=== PATIENT | female | born 1965 | race Caucasian/White ===

== ENCOUNTER → 2024-01-20 16:22 | Outpatient (REF) | payer OTHER, SELFPAY | LOC: WDC 16:22 | PROVIDERS: ATTENDING PHYSICIAN Internal Medicine | DX: Z12.31 Encounter for screening mammogram for malignant neoplasm of breast (principal) | CPT/HCPCS: 77063; 77067 ==

== ENCOUNTER → 2024-01-28 07:50 | Outpatient (REF) | payer OTHER, SELFPAY | LOC: RAD 07:50 | PROVIDERS: ATTENDING PHYSICIAN Internal Medicine | DX: M81.0 Age-related osteoporosis without current pathological fracture (principal) | CPT/HCPCS: 77080 ==

== ENCOUNTER → 2024-02-10 06:24 | Day surgery (SDC) | payer OTHER, SELFPAY | LOC: GI 06:24 | PROVIDERS: ATTENDING PHYSICIAN Internal Medicine Gastroenterology | DX: Z12.11 Encounter for screening for malignant neoplasm of colon (principal); K64.0 First degree hemorrhoids; D12.2 Benign neoplasm of ascending colon; Z86.010 Personal history of colon polyps; Z80.0 Family history of malignant neoplasm of digestive organs; Z15.09 Genetic susceptibility to other malignant neoplasm | CPT/HCPCS: 45385; 88305 ==

== ENCOUNTER → 2024-06-22 15:44 | Outpatient (REF) | payer OTHER, SELFPAY | LOC: RAD 15:44 | PROVIDERS: ATTENDING PHYSICIAN Internal Medicine | DX: M25.531 Pain in right wrist (principal) | CPT/HCPCS: 73110 ==

== ENCOUNTER → 2024-11-12 10:08 | Outpatient (REF) | payer OTHER, SELFPAY | LOC: RCS 10:08 | PROVIDERS: ATTENDING PHYSICIAN Internal Medicine Cardiovascular Disease; FAMILY PHYSICIAN Nurse Practitioner | DX: R07.89 Other chest pain (principal) | CPT/HCPCS: 93306 ==

== ENCOUNTER → 2024-11-17 08:14 | Outpatient (REF) | payer OTHER, SELFPAY | LOC: RCS 08:14 | PROVIDERS: ATTENDING PHYSICIAN Internal Medicine Cardiovascular Disease | DX: R07.89 Other chest pain (principal) | CPT/HCPCS: 93017; 93350 ==

== ENCOUNTER 2024-12-31 08:06 | Emergency (ER) | payer OTHER, SELFPAY ==
[2024-12-31 08:16] VITALS: BP 146/100
--- NOTE | 2024-12-31 09:15 | ED.GENMED ---
History of Present Illness
General
Chief Complaint: Numbness
Source: patient
Exam Limitations: none
Time Seen by Provider: 12/31/24 08:52
History of Present Illness
History of Present Illness:
See MDM
Past History
Past History
ED Past Medical History: Other (Kidney stones and migraines)
ED Past Surgical History: None
Social History
Tobacco: Non-smoker
Personal:
Phy Exam
Physical Exam
Physical Exam:
See MDM
Course
Orders/Labs/Results
Orders:
Orders
12/31/24 09:14
Dexamethasone Sod Phosphate [Decadron] 10 mg IV NOW STA
Gabapentin [Neurontin] 100 mg PO NOW STA
12/31/24 09:30
Complete Blood Count/With Diff Urgent
Comprehensive Metabolic Panel Urgent
Abnormal Lab Results
12/31/24
09:30
Lymphocytes % 20.4 L %
(20.5-51.1)
ALT 45 H U/L
(0-35)
12/31/24 09:30
12/31/24 09:30
Vital Signs
Initial and Last Documented VS:
Initial Vital Signs
Temp Pulse Resp BP Pulse Ox
98.2 F 72 16 146/100 98
12/31/24 08:16 12/31/24 08:16 12/31/24 08:16 12/31/24 08:16 12/31/24 08:16
Last Documented Vital Signs
Temp Pulse Resp BP Pulse Ox
98.2 F 62 16 113/96 98
12/31/24 08:16 12/31/24 10:00 12/31/24 08:16 12/31/24 10:00 12/31/24 10:20
MDM/Problems Addressed
Differential Diagnosis Includes:
HPI and MDM Narrative:
59-year-old female presenting for evaluation of generalized tingling in her feet and her hands. This is associated with mild weakness in both hands as well. She states her legs are weak as well. She does have orthopedic follow-up in 3 weeks. She
has diagnosed cervical and lumbar herniated disks. She has had epidurals in the past with no relief. She denies any trauma.
On exam, she is well-appearing nontoxic. She has no red flags such as numbness or bowel or bladder control issues.
On exam, sensation is grossly intact to legs and feet. Muscle strength is intact as well. I did evaluate her prior MRIs. We discussed that this could be peripheral or potentially central canal stenosis. Will start gabapentin for the nerve pain
and will start a steroid taper. Will obtain basic blood work to rule out any metabolic abnormalities.
Physical exam
General: Well appearing and non-toxic
HEENT: protecting airway
Neck: appears supple
CV: No evidence of cyanosis
Resp: No accessory muscle use
Abd: Non-distended
Extremities: No deformities
Neuro: alert. Full range of motion and muscle strength in all extremities. Sensation grossly intact
Psych: Normal affect
Skin: Intact
Problems Addressed including Acute and Chronic Conditions affecting care:
1. Nerve pain
Acuity: acute
Prognosis: stable
Details: Will start gabapentin steroids. Discussed the importance of keeping her orthopedic appointment and discussed importance of outpatient MRI
Updates
Blood work with clinically relevant abnormality. Patient feels comfortable going home
Differential Diagnosis (but not limited to): Central canal stenosis, herniated disks, hypocalcemia
Testing considered: Lumbar and cervical x-ray but no midline tenderness
Drug therapy (if applicable): OTC meds, please see d/c instruction regarding Rx drugs
Amount and/or Complexity of Data Reviewed
Clinical info obtained from: Patient
External data reviewed: Prior MRIs evaluated showing evidence of central canal stenosis and disc herniations
Labs I independently reviewed (but not limited to): Electrolytes within normal limits
Radiology: N/A
Pulse Ox: not hypoxic
EKG independently reviewed: N/A
Chemist Internship: N/A
Critical Care: N/A
Risk of Complication:
Social Determinants of health: Good social support
Discussed with other providers: N/A
Escalation of Care includes Admit/Obs: After being observed in the Emergency Department, pt stable for discharge.
Occasional wrong word or 'sound a like' substitutions may have occurred due to the inherent limitations of voice recognition software. Read the chart carefully and recognize, using context, where substitutions have occurred.
*Critical Care Note
Total Time (30-74mins, 75-104mins- exclusive of procedures): Not Applicable
ED Attending Note
-
Portions of this chart may have been created with voice recognition software.� Occasional wrong word or��sound alike� substitutions may have occurred due to the inherent limitations of voice recognition software.
Discharge Plan
Departure
Patient Disposition: Home (Routine Discharge)
Date of Disposition: 12/31/24
Time of Disposition: 10:48
Patient with high blood pressure during this ER visit?: No
Discharge Problem:
Paresthesia
Instructions: Paresthesia (DC)
Prescriptions:
New
prednisone 10 mg tablet
See Rx Instructions .ROUTE .COMPLEX Qty: 45 0RF
Rx Instructions:
5 tabs day 1-3, 4 tabs day 4-6, 3 tabs day 7-9, 2 tabs day 10-12, 1 tab day 13-15
gabapentin 100 mg capsule
100 mg PO BID Qty: 30 0RF
No Action
fkbvbffpsv-mosnltlyfsrrq-fylk 1 TAB tablet
1 tab PO Q4HPRN PRN (Reason: migraines)
calcium carbonate 600 MG tablet
600 mg PO DAILY
Referrals:
Iraida Butler CRNP [Family Provider] -
Activity Restrictions/Additional Instructions:
Please return for any worsening symptoms.
You may return at any time if you have further concerns.
Please follow up with your doctor at the first available appointment, preferably this week. Please keep your orthopedic appointment.
Thank you for choosing [facility].
Interventions
Interventions:
*Risk Screen - Suicide Last Done: 12/31/24 08:16
*General Assessment Last Done: 12/31/24 09:39
*Neglect/Abuse Screening Last Done: 12/31/24 08:16
*ED- Fall Risk Assessment Last Done: 12/31/24 09:39
*ED COVID-19 Vaccine History Last Done: 12/31/24 09:39
ED- Neurological Assessment Last Done: 12/31/24 10:20
Discharge Date and Time
Print Language: SCOTTISH
[2024-12-31] MEDS: DECADRON 10 MG IV (09:31)
[2024-12-31] MEDS: NEURONTIN 100 MG PO (09:37)
[2024-12-31 09:39] VITALS: BP 131/118
[2024-12-31 09:40] VITALS: BMI 30.5
[2024-12-31 09:41] LABS: % Basophils 0.6 % (0-2); % Eosinophils 2.8 % (0-6); % Immature Granulocytes 0.1 % (0-0.5); % Lymphocytes 20.4 % (20.5-51.1); % Monocytes 5.5 % (1.7-9.3); % Neutrophils 70.6 % (42.2-75.2); Absolute Eosinophils 0.2 10^3/uL (0-0.7); Absolute Lymphocytes 1.5 10^3/uL (1.2-3.4); Absolute Monocytes 0.4 10^3/uL (0.1-0.6); Absolute Neutrophils 5.1 10^3/uL (1.4-6.5); Hematocrit 43.5 % (37.0-47.0); Hemoglobin 14.6 g/dL (12.0-16.0); Mean Corp Hgb Conc. 33.6 g/dL (33.0-37.0); Mean Corpuscular Hgb 29.8 pg (27.0-31.0); Mean Corpuscular Volume 88.8 fL (81.0-99.0); Mean Platelet Volume 10.2 fL (7.4-10.4); Nucleated Red Blood Cells % 0 %; Platelet Count 245 10^3/uL (130-400); Red Cell Dist. Width 13.3 % (11.5-14.5); White Blood Cell Count 7.3 10^3/uL (4.8-10.8)
[2024-12-31 10:00] VITALS: BP 113/96
[2024-12-31 10:15] LABS: ALT (SGPT) 45 U/L (0-35); AST (SGOT) 36 U/L (14-36); Albumin 4.4 g/dl (3.5-5.0); Alkaline Phosphatase 99 U/L (38-126); Blood Urea Nitrogen 12 mg/dl (7-17); Calcium 9.6 mg/dl (8.4-10.2); Carbon Dioxide 28 mmol/L (22-30); Chloride 105 mmol/L (98-107); Estimated Creatinine Clearance 76 ml/min; Glucose 91 mg/dl (70-99); Potassium 4.3 mmol/L (3.5-5.1); Sodium 141 mmol/L (135-145); Total Bilirubin 0.5 mg/dl (0.2-1.3); Total Protein 7.3 g/dl (6.3-8.2); eGFR > 60.00
== END 2024-12-31 11:48 | disposition home or self-care (01) ==
LOC: EMR 08:06
PROVIDERS: EMERGENCY PHYSICIAN Student in an Organized Health Care Education/Training Program; FAMILY PHYSICIAN Nurse Practitioner
DX: R20.2 Paresthesia of skin (principal); Z87.442 Personal history of urinary calculi
CPT/HCPCS: 99283; 96374; 80053; 85025

== ENCOUNTER 2025-01-14 20:59 | Inpatient (IN) | payer OTHER, SELFPAY ==
[2025-01-14] VITALS (7 sets, daily range): BP systolic 102–142; BP diastolic 73–99; BMI 32.5; BMI 28.4
--- NOTE | 2025-01-14 14:53 | EDRN ---
Numbness is circumferential on arm and leg. Noted decreased ability to use lt hand but can move larger muscles of arm and leg. Numbness affects lt abd and radiates acroos abd to the rt and the back. No resp difficulties
--- NOTE | 2025-01-14 15:51 | EDRN ---
Pt complains of numbness on entire L side of her body. Pt has tingling in her R foot, R hand and anterior abdomen wrapping around to her back. Pt denies ambulatory difficulty, n/v, dizziness, visual/speech disturbance, cp, sob, fever/chills/cough,
urinary symptoms, difficulty swallowing. Pt says she always has a headache but does not have one now.
--- NOTE | 2025-01-14 16:09 | ED.GENMED ---
History of Present Illness
General
Chief Complaint: Numbness
Source: patient
Exam Limitations: none
Time Seen by Provider: 01/14/25 15:08
Nursing documentation reviewed up to this point in time: agreed with
History of Present Illness
History of Present Illness:
59 y/o F with hld, htn, migraines, degenerative disc disease lumbar spine
here with paresthesias and weakness
started 2 weeks ago with symptoms in both forearms to hands when she woke up like they were asleep
she says this lasted throughotut the day and got a little better
the following day she woke up with numbness LUE from collar bone down to foot on L side, still R hand and wraping around her trunk and back - it felt numb like pins and needles
she was still able to walk but the following day woke up and nearly fell over because she was weak and felt like she couldn't feel the ground
she was seen here later that day
felt to have symptoms of neuropathy vs. DDD and was given gabapentin and prednisone
pt says she was fairly weak for a few days, having to sit on her bottom to go down the steps so she wouldn't fall
but she does feel like her strength haxs improved
no fever/chills, headache, vision chagnes, nauesa, vomiting, dizziness, cp, sob, passing out
pt has not hadd any pain isgnificvasntly
she happened to have a visit with dr. vince walsh for her spine yesterday that she had made months ago
he did some neuro testing an dfelt like her LUE was a little weak and ordered outpatient MR of cervical and lumbar spine
but she in the meantime had a telehealth wiht her neurologist who has treated her migraines for years
she previously had MRI brain imaging about 1 year ago that ws brian
and he was really concerned she has a central cord problem or disc or maybe MS
and sent her for admission and MRI and work up
Past History
Past History
ED Past Medical History: Other (Kidney stones and migraines)
ED Past Surgical History: None
Social History
Tobacco: Non-smoker
Personal:
Review of Systems
Review of Systems
Allergies reviewed?: Yes
All Other Systems: Not applicable
Phy Exam
Physical Exam
Physical Exam:
GENERAL: Alert , in no apparent distress
HEAD: NCAT
EYE: pupils equal and reactive, no nystagmus, no photophobia
NECK: Supple,full rom, nontender
ENT: o/p clr, mmm.
CARDIAC: Regular rate and rhythm . no edema
LUNGS: Clear breath sounds bilaterally, no acute respiratory distress, no wheezes/rales/rhonchi
ABDOMEN: Soft, without focal tenderness, no r/g, no cvat
NEUROLOGICAL: Alert and orientedx 4, cn intact, no facial asymmetry 4/5 strength LUE, LLE, sensation diminished trunk, LUE, LLE subjectively; , romberg neg, ambulates without assistance but has a slightly wider gait; + hyperreflexic 3+ b/l patellar,
achilles; neg pronator drift
SKIN: Warm and dry, skin intact.
MUSCULOSKELETAL: No edema, well perfused.
PSYCH: Normal and appropriate interaction.
Course
Orders/Labs/Results
Orders:
Orders
01/14/25 15:58
Electrocardiogram (*1) Stat
Reason for Study: Other
Other Reason for Exam: neuro symptoms
EKG- Treatment ONCE
01/14/25 16:00
CT Head W/o Iv Contrast Urgent
Comment:
Reason For Exam: numbness/weakness L side
01/14/25 16:27
Complete Blood Count/With Diff Urgent
Comprehensive Metabolic Panel Urgent
Folate Urgent
Lyme Progressive Urgent
TSH Reflex To Free T4 Urgent
Vitamin B12 Urgent
01/14/25 19:47
MR Cervical Spine Without & W Stat
Comment: holden sydnrome
Reason For Exam: paresthesia L side, trunk, weakness
Recent pill cam endoscopy?: No
MR Thoracic Spine W/o & With Stat
Comment:
Reason For Exam: holden syndrome, paresthesia trunk/LUE/LLE
Recent pill cam endoscopy?: Yes
01/14/25 20:28
Admit/Transfer Patient As Directed
Co-Sign Provider:
Level of Care: Inpatient admission
Assign to:: Telemetry
Physician / Group: Lauro Concepcion
Diagnosis: Cervico-thoracic myelopathy, hyperreflexia, weakness
Reason for Telemetry: Arrhythmia
Date to Stop Telemetry: 01/17/25
Time to Stop Telemetry: 11:00
Reason for Hospitalization: Cervico-thoracic myelopathy, hyperreflexia, weakness
Expected length of stay greater than two midnights?: Yes
ELOS- Estimated Length of Stay in days: 3
I certify the patient meets the requirements for IP care: Yes
PRN Pain Medication Management As Directed
May give lesser potent ordered pain med per pt: Yes
preference::
Protocol:: Medication orders for pain may be administered in a
manner that supports deferring to patient preference
when the pt is:
- Requesting an ordered lesser potent pain medication.
Least to most potent pain medications are defined
as: acetaminophen < NSAID < tramadol < opioids
(morphine, oxycodone, hydromorphone).
- Requesting a lesser dose of the same medication IF
ORDERED.
- Requesting a less intrusive route of administration
if both routes are prescribed by the provider (PO <
IV).
01/14/25 20:30
Code Status As Directed
Resuscitation Status: Full Code
01/17/25 11:00
DC Protocol for Telemetry ONCE
Abnormal Lab Results
01/14/25
16:27
WBC 17.2 H 10^3/uL
(4.8-10.8)
MCHC 32.5 L g/dL
(33.0-37.0)
RDW 14.6 H %
(11.5-14.5)
Abs Immat Gran (auto) 0.1 H 10^3/uL
(0-0.05)
Absolute Neuts (auto) 12.3 H 10^3/uL
(1.4-6.5)
Absolute Lymphs (auto) 3.6 H 10^3/uL
(1.2-3.4)
Absolute Monos (auto) 0.9 H 10^3/uL
(0.1-0.6)
Carbon Dioxide 34 H mmol/L
(22-30)
ALT 45 H U/L
(0-35)
01/14/25 16:27
01/14/25 16:27
Vital Signs
Initial and Last Documented VS:
Initial Vital Signs
Temp Pulse Resp BP Pulse Ox
36.8 C 72 16 142/95 96
01/14/25 11:59 01/14/25 11:59 01/14/25 11:59 01/14/25 11:59 01/14/25 11:59
Last Documented Vital Signs
Temp Pulse Resp BP Pulse Ox
36.8 C 82 20 127/94 98
01/14/25 11:59 01/14/25 20:00 01/14/25 20:00 01/14/25 19:58 01/14/25 14:45
MDM/Problems Addressed
Differential Diagnosis Includes:
cva, ms, cervical stenosis, myelopathy
MDM/Problems Addressed:
59/ y/o F
sent by her neurologist dr. mayfield
h/o migraines, lumbar DDD, htn, hld
here 2 weeks ago for numbness L UE, LLE as well as trunk and back; felt weak on that side and nearly fell over as her L leg gave out;
at that time she had no imaging, was told she may have ddd and neuropathy, was given steroids and gabapentin
in the 2 weeks since, she has continued to have the tingling/paresthesai feeling but does feel like her weakness is better; she intiially was crawling down the steps becuase she felt like she couldn't feel the floor; but yesterday she happened to
have an appt with vince walsh (ortho/spine) for lower back and he checked her strength and thought she was weaker on the L side, ordered outpatient MR cervical and lumbar spine; but then she did tele health with her neurologist today and was urgently
sent in to the er
she is minimally weaker on the L than R;
hyperreflexic b/l
has intact sensation but feels it is diminished in her trunk, LUE, LLE
d/w dr. galarza; recommended initaiting work up with head ct in the ER and admit, consult neurology
suspect pt will need MRI of cervical spine, and maybe brain
she also has wbc 17 but was recently on steroids?
no fever
no significant pain
no h/o IVDA
SEEN BY NEURO
RECOMMENDED STAT MRI C AND T SPINE WITH STAN
S/O TO HOSPITALIST
*Critical Care Note
Total Time (30-74mins, 75-104mins- exclusive of procedures): Not Applicable
ED Attending Note
-
Portions of this chart may have been created with voice recognition software.� Occasional wrong word or��sound alike� substitutions may have occurred due to the inherent limitations of voice recognition software.
Discharge Plan
Departure
Patient Disposition: Admit
Date of Disposition: 01/14/25
Time of Disposition: 19:03
Admit to: Med/Surg
Presentation/result/management discussed w/ accepting MD/DO: Hospitalist
Condition: Fair
Covid-19: Not Applicable
Discharge Problem:
Paresthesia, Weakness, Hyperreflexia
Interventions
Interventions:
*Risk Screen - Suicide Last Done: 01/14/25 11:59
*General Assessment Last Done: 01/14/25 15:04
*Neglect/Abuse Screening Last Done: 01/14/25 11:59
*ED- Fall Risk Assessment Last Done: 01/14/25 14:51
*ED COVID-19 Vaccine History Last Done: 01/14/25 14:51
ED- Neurological Assessment Last Done: 01/14/25 15:50
[2025-01-14 16:43] LABS: % Basophils 0.3 % (0-2); % Eosinophils 0.8 % (0-6); % Immature Granulocytes 0.5 % (0-0.5); % Lymphocytes 21.1 % (20.5-51.1); % Monocytes 5.3 % (1.7-9.3); Absolute Basophils 0.1 10^3/uL (0-0.2); Absolute Eosinophils 0.1 10^3/uL (0-0.7); Absolute Immature Granulocytes 0.1 10^3/uL (0-0.05); Absolute Lymphocytes 3.6 10^3/uL (1.2-3.4); Absolute Monocytes 0.9 10^3/uL (0.1-0.6); Absolute Neutrophils 12.3 10^3/uL (1.4-6.5); Hematocrit 46.5 % (37.0-47.0); Hemoglobin 15.1 g/dL (12.0-16.0); Mean Corp Hgb Conc. 32.5 g/dL (33.0-37.0); Mean Corpuscular Hgb 29.6 pg (27.0-31.0); Mean Corpuscular Volume 91.2 fL (81.0-99.0); Mean Platelet Volume 9.5 fL (7.4-10.4); Nucleated Red Blood Cells % 0 %; Platelet Count 255 10^3/uL (130-400); Red Cell Dist. Width 14.6 % (11.5-14.5); White Blood Cell Count 17.2 10^3/uL (4.8-10.8)
[2025-01-14 17:00] LABS: ALT (SGPT) 45 U/L (0-35); AST (SGOT) 25 U/L (14-36); Albumin 4.3 g/dl (3.5-5.0); Alkaline Phosphatase 92 U/L (38-126); Blood Urea Nitrogen 16 mg/dl (7-17); Calcium 9.4 mg/dl (8.4-10.2); Carbon Dioxide 34 mmol/L (22-30); Chloride 104 mmol/L (98-107); Estimated Creatinine Clearance 80 ml/min; Glucose 85 mg/dl (70-99); Potassium 4.5 mmol/L (3.5-5.1); Sodium 144 mmol/L (135-145); Total Bilirubin 0.6 mg/dl (0.2-1.3); Total Protein 6.7 g/dl (6.3-8.2); eGFR > 60.00
[2025-01-14 17:30] LABS: TSH Reflex To Free T4 1.69 uIU/ml (0.47-4.68)
[2025-01-14 17:49] LABS: Vitamin B12 885 pg/ml (239-931)
--- NOTE | 2025-01-14 18:06 | CON.NEURO ---
Consultation
Order
Date of Consultation: 01/14/25
Requesting Provider: Iraida Gurrola PA-C
Reason for Consult: Left-sided weakness and sensory deficits
Neurology Consultation Note.
HPI: This is a 59-year-old woman who referred to [facility] on 01/14/2025 for an evaluation of motor and sensory deficits.
According to the patient around two weeks ago while driving, experienced numbness in both arms from elbows to fingers. The following day, she developed the entire left side, including torso paresthesia described as pins and needles sensation. Five
days later, the patient experienced sudden left leg weakness, causing buckling of the knees and a fall upon getting out of bed. She was seen in the ER when prescribed gabapentin and prednisone.
The patient reports improvement of her left leg weakness and persistence of left arm and leg paresthesias. 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 Ms.
Ulises reports new-onset severe constipation with absence of urge to defecate.
The patient now relies on a cane borrowed from her due to left leg weakness and reports difficulty with stairs.
ER VS: 142/95, 72, afebrile
EKG: Sinus bradycardia at 59, QTc Int : 425 ms
PDMP: Duuamv-Hbweocui-Splq 50-325-40 90 tablets filled in on 05/27/2024, 08/17/2024, 12/10/2024
Labs: WBCs�17.2, hematocrit�46.5, normal sodium, creatinine, TSH, B12.
Brain MRI wo geremias(03/23/2013) There are two small white matter lesions in the superior aspect of the left frontal lobe measuring 4 and 3-mm in size. These lesions appear decreased in size and signal intensity compared with the prior MRI examination
performed in 2004.
PMH: Dave syndrome, cervical DJD, HTN, DLP, BMI 32, vitamin D, B12 deficiency, migraine headache, chronic back pain
PSH:colonoscopies, hysterectomy with BSO, bilateral knee arthroscopies
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
FH: Mother in her 60s from stroke, father is alive with CKD and high blood pressure
All:NKDA
ROS: Constitutional: Negative. Negative for chills, fever and unexpected weight change.
HENT: Negative for ear pain, hearing loss, tinnitus and trouble swallowing.
Eyes: Negative. Negative for photophobia, pain and visual disturbance.
Respiratory: Negative for cough, choking and shortness of breath.
Cardiovascular: Negative for chest pain, palpitations and leg swelling.
Gastrointestinal: Positive for constipation
Endocrine: Negative. Negative for cold intolerance.
Genitourinary: Negative for dysuria, flank pain and urgency.
Musculoskeletal: Negative for back pain, gait problem, neck pain and neck stiffness.
Skin: Negative for rash.
Allergic/Immunologic: Negative. Negative for immunocompromised state.
Neurological: Positive for left arm and leg paresthesias and weakness
Psychiatric/Behavioral: Negative for behavioral problems, confusion and hallucinations.
General: Well developed. In no acute distress.
Cardio: Regular rate and rhythm without murmur. Extremities are without cyanosis or edema.
Neuro:
Mental Status: Alert, oriented to person, place, and date. Normal attention and recall. Good fund of knowledge. Follows complex requests across the midline. Comprehension, naming, and repetition intact. Immediate and delayed recall 3/3.
Cranial Nerves: Pupils are equally round and reactive to light. EOMs full. Visual garcia full to confrontation. No ptosis. No nystagmus. V1-V3 intact to light touch and pinprick bilaterally, symmetric. Face symmetric. Normal hearing AU. The
palate elevated well. SCMs and traps 5/5. Tongue midline. No dysarthria.
Motor: Normal bulk and tone. No pronator or arm drift. Strength 5/5 throughout. No clonus.
Reflexes: 2+ throughout the upper extremities and 3+ knees. 2/2 in AJs. Negative Judy's bilaterally plantar responses flexor bilaterally.
Sensory: In the bilateral toes and ankles. No clear sensory level. preserved proprioception
Coordination: No dysmetria or tremor.
Gait: deferred
Assessment and Plan:
I. Cervico-thoracic myelopathy. Differential diagnosis includes intrinsic versus extrinsic. Compressive versus inflammatory versus demyelinating versus neoplastic.
II. Dave syndrome
III. History of migraine headaches
-Continue Telemetry monitoring
-Fall precautions
-Please check PVR
-Stat CT�T spine MRI with and without gadolinium
-Myelopathy blood work
-PT.
-DVT prophylaxis.
I personally reviewed all radiology and labs along with past medical records pertinent to current medical problems. Total time spent in patient care is 64 minutes.
Thank you for allowing us to participate in the care of this patient. We will continue to follow. Please do not hesitate to contact us with any questions or concerns.
Subjective/Objective
Subjective Data
Date of Service: January 14, 2025
Objective Data
Vital Signs
Temp Pulse Resp BP Pulse Ox
36.8 C 71 15 102/82 98
01/14/25 11:59 01/14/25 17:00 01/14/25 17:00 01/14/25 17:00 01/14/25 14:45
Lab Results
01/14/25 16:27
01/14/25 16:27
Sodium 144 mmol/L (135-145) 01/14/25 16:27
Potassium 4.5 mmol/L (3.5-5.1) 01/14/25 16:27
BUN 16 mg/dl (7-17) 01/14/25 16:27
Glucose 85 mg/dl (70-99) 01/14/25 16:27
Calcium 9.4 mg/dl (8.4-10.2) 01/14/25 16:27
Vitamin B12 885 pg/ml (239-931) 01/14/25 16:27
Patient Allergies
No Known Allergies Allergy (Verified 01/14/25 11:58)
Medications
-
Home Medications
�Medication �Instructions �Recorded
dadiryxdyo-tluoiblpzovsg-jifsavgw 1 tab PO [id number] PRN migraines 03/03/17
50 mg-325 mg-40 mg tablet
calcium carbonate 1,200 mg PO DAILY 03/03/17
atorvastatin 40 mg tablet 40 mg PO DAILY 01/14/25
cetirizine 10 mg tablet 10 mg PO DAILY 01/14/25
cholecalciferol (vitamin D3) 125 125 mcg PO DAILY 01/14/25
mcg (5,000 unit) tablet (Vitamin
D3)
cyanocobalamin (vitamin B-12) 1,000 mcg PO DAILY 01/14/25
1,000 mcg tablet
lisinopril 5 mg tablet 5 mg PO DAILY 01/14/25
omega 0-vge-vsj-fish oil 1,200 mg 1 cap PO DAILY 01/14/25
(144 mg-216 mg) capsule (Fish Oil)
Vital Signs and Labs
-
Vital Signs and Labs:
Vital Signs
Temp Pulse Resp BP Pulse Ox
36.8 C 71 15 102/82 98
01/14/25 11:59 01/14/25 17:00 01/14/25 17:00 01/14/25 17:00 01/14/25 14:45
Lab Results
01/14/25 16:27
01/14/25 16:27
Sodium 144 mmol/L (135-145) 01/14/25 16:27
Potassium 4.5 mmol/L (3.5-5.1) 01/14/25 16:27
BUN 16 mg/dl (7-17) 01/14/25 16:27
Glucose 85 mg/dl (70-99) 01/14/25 16:27
Calcium 9.4 mg/dl (8.4-10.2) 01/14/25 16:27
Vitamin B12 885 pg/ml (175-743) 01/14/25 16:27
Home Medications
-
Home Medications
dlpgnucyzx-jymhwcdqbbfpm-wdlkkpht 50 mg-325 mg-40 mg tablet 1 tab PO [id number] PRN migraines 03/03/17
calcium carbonate 1,200 mg PO DAILY 03/03/17
atorvastatin 40 mg tablet 40 mg PO DAILY 01/14/25
cetirizine 10 mg tablet 10 mg PO DAILY 01/14/25
cholecalciferol (vitamin D3) 125 mcg (5,000 unit) tablet (Vitamin D3) 125 mcg PO DAILY 01/14/25
cyanocobalamin (vitamin B-12) 1,000 mcg tablet 1,000 mcg PO DAILY 01/14/25
lisinopril 5 mg tablet 5 mg PO DAILY 01/14/25
omega 7-hdb-oec-fish oil 1,200 mg (144 mg-216 mg) capsule (Fish Oil) 1 cap PO DAILY 01/14/25
[2025-01-14 19:04] LABS: Folate 11.9 ng/ml (2.76-20)
--- NOTE | 2025-01-14 19:34 | HPS.HSE ---
Family Physician
-
Family Physician: ABY Archer
Chief Complaint
-
paresthesias and weakness
History of Present Illness
Patient is a 9-year-old female with past medical history significant for essential hypertension, hyperlipidemia, Dave syndrome and osteoporosis who presented to [facility] ED for evaluation of paresthesias and weakness. Symptoms started
approximately 2 weeks ago in both forearms to hands when she woke up like they were asleep. The next day she woke with numbness in LUE from collar bone down to foot on left side, right hand and wrapping around trunk to back. All described as pins
and needles. On the 3rd day she woke up and had increased weakness, felt like she could not feel ground under her and was afraid of falling. She elected to get evaluated in ED. She was discharged home with gabapentin and prednisone for neuropathy
vs. DDD. Patient reports she continues to feel weak, but does believe there is improvement from initial evaluation. In the last two days patient has seen Dr. Matt iKng for her spine, he felt her LUE was a little weak and ordered out patient
testing. Then today she had a telehealth visit with neurologist who is concerned for central cord problem, disc problem or possible MS and recommended to return to ED for further workup. Patient does report some improvement in strength with the
steroids, the numbness or 'pins and needle' feeling remains the same. She reports new onset constipation and not having a decent bowel movement in 2 weeks. Patient denies vision changes, dizziness, confusion, headaches, fever, chills, cough,
shortness of breath, chest pain, nausea, vomiting, diarrhea or urinary symptoms.
Medical History
Past Medical History
Past Medical History: Reports Other
Additional Past Medical History:
essential hypertension
hyperlipidemia
Dave syndrome
osteoporosis
Hx Sebaceous carcinoma of right shoulder
Hx kidney stones
Past Surgical History: Reports Other
Additional Past Surgical History:
B/L Knee Arthroscopy
TLH/BSO 2019- Done for Dave Syndrome
Total hysterectomy
Social History
Tobacco: Non-smoker
Alcohol: None
Drug: None
Personal:
Living: With Family
Employment: Employed
Family History
Family History: Not pertinent
Allergies / Home Medications
Allergies reflects when Allergies were last updated in [employer].
Home Medications with original date entered in [employer]
Allergy/Medication List:
Allergies
Allergy/AdvReac Type Severity Reaction Status Date / Time
No Known Allergies Allergy Verified 01/14/25 11:58
Home Medications
illkqxrveq-lroyvmdszchxq-cuiaebnr 50 mg-325 mg-40 mg tablet 1 tab PO [id number] PRN migraines 03/03/17
calcium carbonate 1,200 mg PO DAILY 03/03/17
atorvastatin 40 mg tablet 40 mg PO DAILY 01/14/25
cetirizine 10 mg tablet 10 mg PO DAILY 01/14/25
cholecalciferol (vitamin D3) 125 mcg (5,000 unit) tablet (Vitamin D3) 125 mcg PO DAILY 01/14/25
cyanocobalamin (vitamin B-12) 1,000 mcg tablet 1,000 mcg PO DAILY 01/14/25
lisinopril 5 mg tablet 5 mg PO DAILY 01/14/25
omega 4-ayd-rja-fish oil 1,200 mg (144 mg-216 mg) capsule (Fish Oil) 1 cap PO DAILY 01/14/25
Review of Systems
-
Abdomen/GI: Reports Constipated
Musculoskeletal: Reports Other (numbness on left side, collar bone to toes with no improvement in 2 weeks )
Neurological: Reports Weakness (generalized weakness, L>R) and Numbness (Left side of body from collar bone to toes )
Physical Exam
Vital Signs
Vital Signs
Temp Pulse Resp BP Pulse Ox
98.3 F 67 17 141/99 98
01/14/25 11:59 01/14/25 18:10 01/14/25 18:10 01/14/25 18:10 01/14/25 14:45
Physical Exam
General: Well Developed, Well Nourished, No Apparent Distress, Comfortable and Conversant
HEENT: NormoCephalic, Moist mucous membranes, Atraumatic, [place] Conjunctivae, Nose Appears Normal and Ears Appear Normal
Respiratory: Clear and Non Labored Respirations
Cardiac: S1/S2 and Regular Rhythm; No Murmur, Rub or Gallop
GI: Soft, Non Tender, Non Distended and Normal Bowel Sounds (hypoactive ); No Organomegaly
Rectal: Deferred by Provider
Genito-urinary: Deferred by me
Musculoskeletal: No Clubbing, No Cyanosis and No Edema
Skin: No Rash
Neuro: Awake, Alert, AO x 3 and Nonfocal/grossly intact; No DTR's Intact & Symmetrical (4/5 strength LUE, LLE, sensation diminished trunk, LUE, LLE subjectively; +4 hyperreflexic to left patellar )
Psych: Calm and Intact Judgment/Insight
Laboratory Results
-
01/14/25 16:27
01/14/25 16:27
Laboratory Results
Total Bilirubin 0.6 mg/dl (0.2-1.3) 01/14/25 16:27
AST 25 U/L (14-36) 01/14/25 16:27
ALT 45 U/L (0-35) H 01/14/25 16:27
Alkaline Phosphatase 92 U/L (38-126) 01/14/25 16:27
Data Reviewed
-
CT Scan: Report Reviewed by me (Head: No acute intracranial abnormality noted.)
Medical Tests (Nuc Med, Echo, EKG etc): Report Reviewed by me (EKG: SINUS BRADYCARDIA LOW VOLTAGE QRS LEFT ANTERIOR FASCICULAR BLOCK NONSPECIFIC T WAVE ABNORMALITY)
Lab Data: Labs Reviewed by me (WBC 17.2)
Impression/Plan
-
IMPRESSION/PLAN:
#cervico-thoracic myelopathy
Left sided weakness and numbness from collar bone to toes, hyperreflexic
EKG: SINUS BRADYCARDIA
LOW VOLTAGE QRS
LEFT ANTERIOR FASCICULAR BLOCK
NONSPECIFIC T WAVE ABNORMALITY
Head CT: No acute intracranial abnormality noted.
- Admit to telemetry
- Consult Neurology
- STAT MRI CT-T spine
- bladder scan for PVR
#essential hypertension
- continue lisinopril
#hyperlipidemia
- hold atorvastatin
#Dave syndrome
#osteoporosis
#Hx Sebaceous carcinoma of right shoulder
#Hx kidney stones
Code status: full code
DVT prophylaxis: Lovenox sq
--- NOTE | 2025-01-14 19:59 | W.PN.UPDATE ---
Addendum entered and electronically signed by Lauro Concepcion MD 01/15/25 09:11:
Laboratory Tests
01/14/25 01/14/25 01/15/25
16:27 22:47 06:29
Creatine Kinase 38
C-Reactive Protein 9.30 Pending
Total Protein 6.7
Albumin 4.3
Vitamin B12 885
Folate 11.9
TSH (Reflex) 1.69
CHENCHO IgG Screen Pending
Addendum entered and electronically signed by Lauro Concepcion MD 01/15/25 09:07:
01/14/25 MRI Cx spin w/wo
Focal somewhat pointed defined signal intensity abnormality within the cervical spinal cord at the C5-6 level as described, with no evidence for abnormal enhancement. Given the clinical symptoms, this is suspicious for a focal area of transverse
myelitis or demyelination, although without evidence for active enhancement/inflammation.
Changes of degenerative disc disease. Borderline mild overall central canal stenosis at C5-6.
Pending report of MRITxspine w/wo
- await Neuro follow up consult
Original Note:
Update Note
Progress Note Update
This note serves as an addendum to the H&P by head start teacher NILTON
Dianne Covingtonck
HPI
59F HX DDD Oc Lx spine , HTN, HLD sen at ER for paresthesias and weakness of Ext and trunk and unsteady gait
- 2 weeks ago now onset of both forearms to hands when she woke up as if they were asleep which lasted throughotut the day and got a little better
- Day 2 she woke up with numbness LUE from collar bone down to foot on L side, still R hand and wraping around her trunk and back - it felt numb like pins and needles
- Day 3 from onset , felt weak, nearly fell coz she couldn't feel the ground
- Then she was seen at ER suugest neuropathy vs. DDD and was given gabapentin and prednisone
- After initiation of PO steroids , fairly weak for a few days, sit on her bottom to go down the steps
- Subjectively strength was improved
ROS
- no fever/chills, headache, vision chagnes, nauesa, vomiting, dizziness, cp, sob, passing out
PHX; se above
VS
01/14/25
11:59
Temp 98.3 F
Pulse 72
Resp Rate 16
Blood pressure 142/95
SaO2 96
Oxygen Mode of Delivery Room air
PE
Gen: Not toxic
HEENT: symmetric face . Nl speech. Nl language
Neck:supple
Lungs: CTA
Cor:RRR
Abdomen: soft , benighn
CONFERENCE RESERVATIONIST:
AOx3
CN intact
Motor: Lt UEx and Lt MT - 4/5 strength. NEG pronator drift
Sensory: diminished trunk, LUE, LLE
DTR: asymmetric reflexes. Hyper reflexic specially Lt sided KJ,AJ and Biceps
NEG Romberg
Gait: Ambulates without assistance, slightly braod base gait;
Psych: appropriate
Lab
01/14/25
16:27
WBC 17.2 H
Hgb 15.1
Plt Count 255
Carbon Dioxide 34 H
BUN 16
Creatinine 0.7
Total Bilirubin 0.6
AST 25
ALT 45 H
Albumin 4.3
Vitamin B12 885
Folate 11.9
TSH (Reflex) 1.69
Lyme Screen IgG & IgM Pending
EKG report confirmed by MD MAGUI, LES Alexandra
SINUS BRADYCARDIA
LOW VOLTAGE QRS
LEFT ANTERIOR FASCICULAR BLOCK
NONSPECIFIC T WAVE ABNORMALITY
ABNORMAL ECG
WHEN COMPARED WITH ECG OF 12-MAY-2019 14:48,
LEFT ANTERIOR FASCICULAR BLOCK IS NOW PRESENT
CT Head W/o Iv Contrast:
- No acute intracranial abnormality noted.
Pending MRI of Cx and Thx spine
11/12/24 TTE
LV ejection fraction is 55-60% by visual assessment.
No significant valvular disease.
No evidence for pulmonary hypertension
No prior study available for comparison
ASSESSMENT & PLAN
Brisk hyperreflexia of Lt Lt sided KJ,AJ and Biceps > Rt side c/w UMNL ( upper motor neurone lesions aka central )
Somewhat acute paresthesias and weakness of Lt upper and lower Ext and trunk Unsteady gait
DDX: Demyelinating dz of the cord ( cervical and Thx ) such as MS
S/P 2 weeks course of Medrol dose pack and subjectively improved motor strength
Nl TSH. Nl B12 level
- previously Brain MRI 1 year ago that was normal
- agree with urgent MR of cervical and lumbar spine with IV contrast
- check CHENCHO/ ESR/CRP/ CPK
- PT/OT consult
- Neuro evaluated at ER - appreciated
HLD on statin
Dave syndrome
- on B12 replacement Tx
DVT Px: LMWH
Full code
IP TLM suggested Neuro
[2025-01-14 22:49] LABS: Erythrocyte Sed Rate 2 mm/hour (0-20)
[2025-01-14 23:16] LABS: Creatine Phosphokinase 38 U/L (30-135)
--- NOTE | 2025-01-14 23:16 | PTCARENOTE ---
Patient arrived to floor from ED. Patient ambulated from stretcher to bed. Patient oriented to room. Patient's bed in lowest position, call fowler in reach. Will continue to monitor.
[2025-01-14] MEDS: FIORICET 1 TAB PO (23:29)
[2025-01-14] MEDS: SENOKOT-S 1 TABLET PO (23:30)
[2025-01-15] VITALS (7 sets, daily range): BP systolic 100–125; BP diastolic 65–88; PULSE 97–103; O2SAT 97
[2025-01-15 07:26] LABS: Hematocrit 48.5 % (37.0-47.0); Hemoglobin 15.6 g/dL (12.0-16.0); Mean Corp Hgb Conc. 32.2 g/dL (33.0-37.0); Mean Corpuscular Hgb 29.8 pg (27.0-31.0); Mean Corpuscular Volume 92.7 fL (81.0-99.0); Mean Platelet Volume 9.9 fL (7.4-10.4); Platelet Count 264 10^3/uL (130-400); Red Blood Cell Count 5.23 10^6/uL (4.20-5.40); Red Cell Dist. Width 14.7 % (11.5-14.5)
[2025-01-15 07:42] LABS: Blood Urea Nitrogen 16 mg/dl (7-17); Calcium 9.2 mg/dl (8.4-10.2); Carbon Dioxide 35 mmol/L (22-30); Chloride 104 mmol/L (98-107); Estimated Creatinine Clearance 73 ml/min; Glucose 72 mg/dl (70-99); Sodium 145 mmol/L (135-145); eGFR > 60.00
[2025-01-15] MEDS: ZYRTEC 10 MG PO (07:44)
[2025-01-15] MEDS: VITAMIN B-12 1000 MCG PO (07:44)
[2025-01-15] MEDS: OSCAL CAL 500 1000 MG PO (07:44)
[2025-01-15] MEDS: VITAMIN D3 (cholecalciferol) 125 MCG PO (07:44)
[2025-01-15] MEDS: ZESTRIL 5 MG PO (07:44)
[2025-01-15] MEDS: DULCOLAX 10 MG RECTAL (08:07)
--- NOTE | 2025-01-15 08:23 | W.PN.NEURO.1 ---
Today's Communication / Plan
-
.
Subjective/Objective
Subjective Data
Date of Service: January 15, 2025
Neurology follow-up report
Ms. Montgomery endorses ongoing paresthesia in the left arm as well as her typical holocephalic headache with no autonomic symptoms.
C/T spine MRI with and without gadolinium�C5-6 level nonenhancing spinal cord signal abnormality.
Labs: CRP�14.2, vitamin B12�885, normal folate, TSH.
Brain MRI wo geremias(03/23/2013) There are two small white matter lesions in the superior aspect of the left frontal lobe measuring 4 and 3-mm in size. These lesions appear decreased in size and signal intensity compared with the prior MRI examination
performed in 2004.
PMH: Dave syndrome, cervical DJD, HTN, DLP, BMI 32, vitamin D, B12 deficiency, migraine headache, chronic back pain
PSH:colonoscopies, hysterectomy with BSO, bilateral knee arthroscopies
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
FH: Mother in her 60s from stroke, father is alive with CKD and high blood pressure
All:NKDA
ROS: Constitutional: Negative. Negative for chills, fever and unexpected weight change.
HENT: Negative for ear pain, hearing loss, tinnitus and trouble swallowing.
Eyes: Negative. Negative for photophobia, pain and visual disturbance.
Respiratory: Negative for cough, choking and shortness of breath.
Cardiovascular: Negative for chest pain, palpitations and leg swelling.
Gastrointestinal: Positive for constipation
Endocrine: Negative. Negative for cold intolerance.
Genitourinary: Negative for dysuria, flank pain and urgency.
Musculoskeletal: Negative for back pain, gait problem, neck pain and neck stiffness.
Skin: Negative for rash.
Allergic/Immunologic: Negative. Negative for immunocompromised state.
Neurological: Positive for left arm and leg paresthesias and weakness, headache
Psychiatric/Behavioral: Negative for behavioral problems, confusion and hallucinations.
General: Well developed. In no acute distress.
Cardio: Regular rate and rhythm without murmur. Extremities are without cyanosis or edema.
Neuro:
Mental Status: Alert, oriented to person, place, and date. Normal attention and recall. Good fund of knowledge. Follows complex requests across the midline. Comprehension, naming, and repetition intact. Immediate and delayed recall 3/3.
Cranial Nerves: Pupils are equally round and reactive to light. EOMs full. Visual garcia full to confrontation. No ptosis. No nystagmus. V1-V3 intact to light touch and pinprick bilaterally, symmetric. Face symmetric. Normal hearing AU. The
palate elevated well. SCMs and traps 5/5. Tongue midline. No dysarthria.
Motor: Normal bulk and tone. No pronator or arm drift. Strength 5/5 throughout except for left triceps�3 out of 5, left hip flexion�4 out of 5, left dorsiflexion�5- out of 5 no clonus.
Reflexes: 2+ throughout the upper extremities and 3+ knees. 2/2 in AJs. Negative Judy's bilaterally plantar responses flexor bilaterally.
Sensory: In the bilateral toes and ankles. No clear sensory level. preserved proprioception
Coordination: No dysmetria or tremor.
Gait: deferred
Assessment and Plan:
I. Cervico-thoracic myelopathy. Differential diagnosis includes autoimmune versus demyelinating less likely vascular, infectious or neoplastic
II. Dave syndrome
III. History of migraine headaches
-Fall precautions
-Fall precautions
-Please obtain brain MRI with and without gadolinium
-Follow-up myelopathy blood
-CSF(OP, CP, cell count, protein, glucose, OCB, MBP, POLO, cytology)
-Start IV methylprednisolone 1 g daily for 3 days with GI prophylaxis
-IV Toradol 30 mg, Reglan 10 mg, Benadryl 25 mg Q8h PRN for moderate to severe headache.
-PT.
-DVT prophylaxis.
-Plan was discussed with patient's spouse present at the bedside
I personally reviewed all radiology and labs along with past medical records pertinent to current medical problems. Total time spent in patient care is 40 minutes.
Thank you for allowing us to participate in the care of this patient. We will continue to follow. Please do not hesitate to contact us with any questions or concerns.
Objective Data
Vital Signs
Temp Pulse Resp BP Pulse Ox
36.5 C 88 18 122/88 98
01/15/25 07:05 01/15/25 07:05 01/15/25 07:05 01/15/25 07:05 01/15/25 07:05
Lab Results
01/15/25 06:
01/15/25 06:
Sodium 145 mmol/L (135-145) 01/15/25 06:
Potassium 5.0 mmol/L (3.5-5.1) 01/15/25 06:
BUN 16 mg/dl (7-17) 01/15/25 06:29
Glucose 72 mg/dl (70-99) 01/15/25 06:29
Calcium 9.2 mg/dl (8.4-10.2) 01/15/25 06:29
Vitamin B12 885 pg/ml (239-931) 01/14/25 16:27
Patient Allergies
No Known Allergies Allergy (Verified 01/14/25 11:58)
Vital Signs and Labs
-
Vital Signs and Labs:
Vital Signs
Temp Pulse Resp BP Pulse Ox
36.5 C 88 18 122/88 98
01/15/25 07:05 01/15/25 07:05 01/15/25 07:05 01/15/25 07:05 01/15/25 07:05
Lab Results
01/15/25 06:29
01/15/25 06:29
Sodium 145 mmol/L (135-145) 01/15/25 06:
Potassium 5.0 mmol/L (3.5-5.1) 01/15/25 06:29
BUN 16 mg/dl (7-17) 01/15/25 06:29
Glucose 72 mg/dl (70-99) 01/15/25 06:29
Calcium 9.2 mg/dl (8.4-10.2) 01/15/25 06:29
Vitamin B12 885 pg/ml (302-831) 01/14/25 16:27
Medications
-
Medications:
Generic Name Dose Route Start Last Admin
Trade Name Freq PRN Reason Stop Dose Admin
Acetaminophen 650 mg 01/14/25 22:01
Acetaminophen 325 Mg Tablet PO 02/11/25 22:00
Q4HPRN PRN
mild pain/WONG/temp> 100.4F
Acetaminophen/Butalbital/Caffeine 1 tab 01/14/25 22:01 01/14/25 23:29
Butalbit/Acetaminophen/Caffeine PO 02/11/25 22:00 1 tab
[id number] PRN Administration
migraines
Bisacodyl 10 mg 01/14/25 22:01 01/15/25 08:07
Bisacodyl 10 Mg Rectal Suppository RECTAL 02/11/25 22:00 10 mg
[id number] PRN Administration
constipation
Calcium Carbonate 1,000 mg 01/15/25 08:00 01/15/25 07:44
Calcium Carbonate 500 Mg Tablet PO 02/12/25 07:59 1,000 mg
DAILY IRINA Administration
Cetirizine HCl 10 mg 01/15/25 08:00 01/15/25 07:44
Cetirizine Hcl 10 Mg Tablet PO 02/12/25 07:59 10 mg
DAILY IRINA Administration
Cholecalciferol 125 mcg 01/15/25 08:00 01/15/25 07:44
Cholecalciferol (Vitamin D3) 125 Mcg Tablet (5,000 Units) PO 02/12/25 07:59 125 mcg
DAILY IRINA Administration
Cyanocobalamin 1,000 mcg 01/15/25 08:00 01/15/25 07:44
Cyanocobalamin 1,000 Mcg Tablet PO 02/12/25 07:59 1,000 mcg
DAILY IRINA Administration
Enoxaparin Sodium 40 mg 01/15/25 18:00
Enoxaparin Sodium 40 Mg/0.4 Ml Syringe SC 02/12/25 17:59
QPM IRINA
Lisinopril 5 mg 01/15/25 08:00 01/15/25 07:44
Lisinopril 5 Mg Tablet PO 02/12/25 07:59 5 mg
DAILY IRINA Administration
[place] 4-Aio-Wow-Fish 0 cap 01/15/25 08:00
Oil [Fish Oil] 1, PO 02/12/25 07:59
200 (144-216) Mg DAILY IRINA
Capsule Po Daily
Polyethylene Glycol 17 grams 01/14/25 22:01
Polyethylene Glycol Powder 17 Grams Packet PO 02/11/25 22:00
DAILYPRN PRN
constipation
Senna/Docusate Sodium 1 tablet 01/14/25 22:01 01/14/25 23:30
Docusate W/Senna (Faye-Colace) Tablet PO 02/11/25 22:00 1 tablet
BIDPRN PRN Administration
constipation
Sodium Chloride 0 flush 01/14/25 22:00
Sodium Chloride 0.9% (Flush) Syringe IV 02/11/25 21:59
PER PROTOCOL IRINA
Home Medications
-
Home Medications
wfqectvzuc-fouhrbcqtasje-woqwaktr 50 mg-325 mg-40 mg tablet 1 tab PO [id number] PRN migraines 03/03/17
calcium carbonate 1,200 mg PO DAILY 03/03/17
atorvastatin 40 mg tablet 40 mg PO DAILY 01/14/25
cetirizine 10 mg tablet 10 mg PO DAILY 01/14/25
cholecalciferol (vitamin D3) 125 mcg (5,000 unit) tablet (Vitamin D3) 125 mcg PO DAILY 01/14/25
cyanocobalamin (vitamin B-12) 1,000 mcg tablet 1,000 mcg PO DAILY 01/14/25
lisinopril 5 mg tablet 5 mg PO DAILY 01/14/25
omega 0-luc-ylz-fish oil 1,200 mg (144 mg-216 mg) capsule (Fish Oil) 1 cap PO DAILY 01/14/25
--- NOTE | 2025-01-15 08:53 | W.PN.HOSP.TC ---
Addendum entered and electronically signed by Sara Pop MD 01/15/25 15:17:
I saw and evaluated the patient independently. I reviewed the resident�s note and agree with findings and plan as documented by Dr. Perkins.
GENERAL: well developed, well nourished, female in no apparent distress
HEENT: NC/AT
HEART: regular rate and rhythm, +S1, +S2
LUNGS : clear to auscultation bilaterally
ABDOM: soft, nontender, nondistended, + bowel sounds
EXT: no cyanosis, clubbing, or edema
NEUROLOGIC: grossly intact
paresthesias--Bruce MRI suggestive of MS, C-spine MRI suggestive of transverse myelitis (TM)/MS-- Apprec neuro-- head CT with no acute intracranial abnormality-- Lab results of neuro workup pending-- Continue pulse dose solumedrol x3 with GI
prophylaxis--likely will need LP--cont PT/OT, bladder scan
Migraine-- Continue home Fioricet-- for mod-sev WONG, IV toradol 30mg, reglan 10mg, benadryl 25mg q8hprn per neuro
Constipation-- check abd xray to eval stool burden-- increase bowel regimen--may improve with pulse steroids if TM involved
Essential hypertension-- continue home lisinopril
Hyperlipidemia-- continue home atorvastatin.
Mild elevation of ALT noted, minor lab abnormality of no clinical concern at this time. Repeat LFTs intermittently to monitor.
Hx Dave syndrome--noted
osteoporosis
DVT proph
code status -- full code
Original Note:
Today's Communication/Plan
-
Brain MRI, abd xray, steroids and headache regimen per neuro
Assessment / Plan
Assessment / Plan
59-year-old female with past medical history of Dave syndrome, h/o sebaceous carcinoma, HTN, HLD who presented to ED for 2 weeks of paresthesias and weakness.
Cervico-thoracic myelopathy-- etiology unclear, differential includes autoimmune, demyelinating, neoplastic, vascular, infectious-- Apprec neuro-- head CT with no acute intracranial abnormality; MRI C-spine and T-spine showed -- MRI brain pending--
Lab results of neuro workup pending-- Continue IV steroids x3 days per neurology, GI ppx-- PT/OT, bladder scan
Migraine-- Continue home Fioricet-- for mod-sev WONG, IV toradol 30mg, reglan 10mg, benadryl 25mg q8hprn per neuro
Constipation-- check abd xray to eval stool burden-- increase bowel regimen
Essential hypertension-- continue home lisinopril
Hyperlipidemia-- continue home atorvastatin.
Mild elevation of ALT noted, minor lab abnormality of no clinical concern at this time. Repeat LFTs intermittently to monitor.
Dave syndrome
osteoporosis
Hx Sebaceous carcinoma of right shoulder
Hx kidney stones
Code status: full code
DVT ppx: Lovenox sq
Diet: regular
Dispo planning: pending clinical course and PT/OT eval
Head CT 01/14/25
IMPRESSION:
No acute intracranial abnormality noted.
Cervical spine MRI 01/14/25
Within the cervical spinal cord at the C5-6 level, there is a focal area of patchy increased T2 and STIR signal, with somewhat poorly defined borders. This measures approximately 14 mm craniocaudal. On axial images, and appears to be predominantly
in the central spinal cord. There is no evidence for enhancement after contrast. This is a new finding compared to MRI of the cervical spine from May 01, 2016.
Given the clinical history, this would be considered suspicious for a focal area of transverse myelitis/demyelination, although without enhancement with contrast. There is no significant volume loss of the spinal cord, likely myelomalacia would be
less likely. Although there are some changes of degenerative disc disease, there does not appear to be high-grade stenosis, and therefore cord edema from cord compression would seem unlikely. Also, I have no reported history of recent injury to the
neck.
No other signal intensity abnormality in the cervical or visualized upper thoracic spinal cord.
IMPRESSION: Focal somewhat pointed defined signal intensity abnormality within the cervical spinal cord at the C5-6 level as described, with no evidence for abnormal enhancement. Given the clinical symptoms, this is suspicious for a focal area of
transverse myelitis or demyelination, although without evidence for active enhancement/inflammation.
Changes of degenerative disc disease. Borderline mild overall central canal stenosis at C5-6.
Thoracic spine MRI 01/14/25
IMPRESSION: Normal morphology and signal intensity of the thoracic spinal cord with no evidence for abnormal enhancement.
No evidence for spinal cord compression.
Focal intermediate T1 and T2-weighted signal within the posterior aspect of the left lower lobe. Statistically, this is most likely atelectasis.
Anticipated Discharge: > 48 hours
Subjective/Interval History
-
Date of Service: January 15, 2025
No acute events overnight. This morning she complains of headache consistent with her usual migraines; anht-lph-kdjmayl of her left arm, upper abdomen, right fingertips; left arm weakness; constipation. Otherwise review of systems negative--
denies dizziness, chest pain, palpitations, shortness of breath, abdominal pain, nausea, vomiting, diarrhea, difficulty swallowing.
Objective Data
-
Labs:
Laboratory Results
01/15/25
06:29
WBC 20.0 H
Hgb 15.6
Hct 48.5 H
Plt Count 264
Sodium 145
Potassium 5.0
Chloride 104
Carbon Dioxide 35 H
BUN 16
Creatinine 0.8
Glucose 72
Calcium 9.2
Vital Signs:
Vital Signs
Temp Pulse Resp BP Pulse Ox
97.7 F 88 18 122/88 98
01/15/25 07:05 01/15/25 07:05 01/15/25 07:05 01/15/25 07:05 01/15/25 07:05
I&O
01/14/25 01/15/25 01/16/25
06:59 06:59 06:59
Intake Total 480 / 480
Balance 480 / 480
Review of Systems
-
History Source: Patient
All other systems: Reviewed and negative
Physical Exam
-
General: Well Developed, Well Nourished, No Apparent Distress, Comfortable and Conversant; Negative Pain, Fever, Chills or Sweats
HEENT: Normocephalic and Atraumatic
Respiratory: Clear to Auscultation and Non Labored Respirations; Negative Wheezes, Rales or Rhonchi
Cardiac: Regular Rhythm and S1/S2
GI: Soft, Nontender and Nondistended
Musculoskeletal: No Clubbing, No Cyanosis and No Edema
Skin: Warm and Dry
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 R arm 5/5 extension, L arm 3-4/5 extension. Symmetric facial expressions, eyebrow raise, no tongue deviation.); Negative
Facial Droop
Psych: Calm
Data Reviewed
-
CT Scan: Image personally visualized and interpreted and Report Reviewed by me
MRI: Report Reviewed by me
Labs: Labs Reviewed by me
[2025-01-15 10:12] LABS: HIV Combo Negative (Negative)
[2025-01-15] MEDS: SOLU-MEDROL 258 MG IV (13:39)
[2025-01-15] MEDS: PROTONIX 20 MG PO (13:39)
[2025-01-15] MEDS: LIPITOR 40 MG PO (16:39)
[2025-01-15] MEDS: LOVENOX 40 MG SC (17:06)
[2025-01-15] MEDS: COLACE 100 MG PO (21:29)
[2025-01-15] MEDS: FIORICET 1 TAB PO (21:29)
[2025-01-16 03:20] VITALS: BP 110/62
[2025-01-16 07:00] VITALS: BP 119/72
[2025-01-16 07:17] LABS: Hematocrit 41.5 % (37.0-47.0); Hemoglobin 13.8 g/dL (12.0-16.0); Mean Corp Hgb Conc. 33.3 g/dL (33.0-37.0); Mean Corpuscular Hgb 30.4 pg (27.0-31.0); Mean Corpuscular Volume 91.4 fL (81.0-99.0); Mean Platelet Volume 10.1 fL (7.4-10.4); Platelet Count 231 10^3/uL (130-400); Red Blood Cell Count 4.54 10^6/uL (4.20-5.40); Red Cell Dist. Width 14.2 % (11.5-14.5)
[2025-01-16 07:57] LABS: Blood Urea Nitrogen 17 mg/dl (7-17); Calcium 9.2 mg/dl (8.4-10.2); Carbon Dioxide 29 mmol/L (22-30); Chloride 106 mmol/L (98-107); Estimated Creatinine Clearance 84 ml/min; Glucose 139 mg/dl (70-99); Magnesium 2.1 mg/dl (1.6-2.3); Sodium 143 mmol/L (135-145); eGFR > 60.00
[2025-01-16 08:07] LABS: Potassium 4.4 mmol/L (3.5-5.1)
[2025-01-16] MEDS: COLACE PO (08:30)
[2025-01-16] MEDS: PROTONIX 20 MG PO (08:30)
[2025-01-16] MEDS: MIRALAX PO (08:30)
[2025-01-16] MEDS: OSCAL CAL 500 1000 MG PO (08:30)
[2025-01-16] MEDS: ZESTRIL 5 MG PO (08:31)
[2025-01-16] MEDS: ZYRTEC 10 MG PO (08:31)
[2025-01-16] MEDS: VITAMIN B-12 1000 MCG PO (08:31)
[2025-01-16] MEDS: LIPITOR 40 MG PO (08:31)
[2025-01-16] MEDS: VITAMIN D3 (cholecalciferol) 125 MCG PO (08:32)
--- NOTE | 2025-01-16 08:59 | W.PN.HOSP.TC ---
Addendum entered and electronically signed by Sara Pop MD 01/16/25 14:57:
I saw and evaluated the patient independently. I reviewed the resident�s note and agree with findings and plan as documented by Dr. Perkins.
GENERAL: well developed, well nourished, female in no apparent distress
HEENT: NC/AT
HEART: regular rate and rhythm, +S1, +S2
LUNGS : clear to auscultation bilaterally
ABDOM: soft, nontender, nondistended, + bowel sounds
EXT: no cyanosis, clubbing, or edema
NEUROLOGIC: grossly intact
paresthesias--Bruce MRI suggestive of MS, C-spine MRI suggestive of transverse myelitis (TM)/MS-- Apprec neuro-- head CT with no acute intracranial abnormality-- Lab results of neuro workup pending-- Continue pulse dose solumedrol with GI prophylaxis
(day 2 of 3)--likely will need LP Friday, consult IR--cont PT/OT, bladder scan
Migraine-- Continue home Fioricet-- for mod-sev WONG, IV toradol 30mg, reglan 10mg, benadryl 25mg q8hprn per neuro
Constipation-- check abd xray to eval stool burden-- increase bowel regimen--may improve with pulse steroids if TM involved
Essential hypertension-- continue home lisinopril
Hyperlipidemia-- continue home atorvastatin.
Mild elevation of ALT noted, minor lab abnormality of no clinical concern at this time. Repeat LFTs intermittently to monitor.
Hx Dave syndrome--noted
osteoporosis
DVT proph
code status -- full code
Original Note:
Today's Communication/Plan
-
Continue steroids per neuro. Await results of LP/CSF eval/myelopathy labs.
Assessment / Plan
Assessment / Plan
59-year-old female with past medical history of Dave syndrome, h/o sebaceous carcinoma, HTN, HLD who presented to ED for 2 weeks of paresthesias and weakness.
? SIDING STAPLER demyelinating disease--Apprec neuro-- head CT with no acute intracranial abnormality; MRI C-spine suggestive of transverse myelitis; MRI brain suggestive of MS--myelopathy workup pending; will be for LP with CSF eval per neuro-- Continue IV
steroids 01/05-01/07 per neuro, GI ppx-- PT/OT, bladder scan PRN
Migraine-- Continue home Fioricet-- for mod-sev WONG, IV toradol 30mg, reglan 10mg, benadryl 25mg q8hprn per neuro
Constipation--continue standing bowel regimen
Essential hypertension-- continue home lisinopril
Hyperlipidemia-- continue home atorvastatin.
Mild elevation of ALT noted, minor lab abnormality of no clinical concern at this time. Repeat LFTs intermittently to monitor.
Dave syndrome
osteoporosis
Hx Sebaceous carcinoma of right shoulder
Hx kidney stones
Code status: full code
DVT ppx: Lovenox sq
Diet: regular
Dispo planning: pending clinical course and PT/OT eval
Head CT 01/14/25
IMPRESSION:
No acute intracranial abnormality noted.
Cervical spine MRI 01/14/25
Within the cervical spinal cord at the C5-6 level, there is a focal area of patchy increased T2 and STIR signal, with somewhat poorly defined borders. This measures approximately 14 mm craniocaudal. On axial images, and appears to be predominantly
in the central spinal cord. There is no evidence for enhancement after contrast. This is a new finding compared to MRI of the cervical spine from May 01, 2016.
Given the clinical history, this would be considered suspicious for a focal area of transverse myelitis/demyelination, although without enhancement with contrast. There is no significant volume loss of the spinal cord, likely myelomalacia would be
less likely. Although there are some changes of degenerative disc disease, there does not appear to be high-grade stenosis, and therefore cord edema from cord compression would seem unlikely. Also, I have no reported history of recent injury to the
neck.
No other signal intensity abnormality in the cervical or visualized upper thoracic spinal cord.
IMPRESSION: Focal somewhat pointed defined signal intensity abnormality within the cervical spinal cord at the C5-6 level as described, with no evidence for abnormal enhancement. Given the clinical symptoms, this is suspicious for a focal area of
transverse myelitis or demyelination, although without evidence for active enhancement/inflammation.
Changes of degenerative disc disease. Borderline mild overall central canal stenosis at C5-6.
Thoracic spine MRI 01/14/25
IMPRESSION: Normal morphology and signal intensity of the thoracic spinal cord with no evidence for abnormal enhancement.
No evidence for spinal cord compression.
Focal intermediate T1 and T2-weighted signal within the posterior aspect of the left lower lobe. Statistically, this is most likely atelectasis.
Brain MRI 01/15/25
There are foci of increased T2 and FLAIR signal with within the white matter of both hemispheres, more numerous on the left when compared to the right. There is left frontal periventricular involvement adjacent to the frontal horn and anterior mid
body of the left lateral ventricle. Scattered small foci within the deep and subcortical white matter of both hemispheres, with involvement of the frontal and parietal lobes, more numerous in the left hemisphere compared to the right.
With the periventricular predominance, findings are most suggestive of demyelinating process, such as multiple sclerosis. Differential consideration of Lyme disease. White matter hyperintensities are nonspecific, and vasculitis could also be
considered. Advanced small vessel ischemic change would be the next main differential consideration.
IMPRESSION: Foci of increased T2 and FLAIR signal as described, including involvement in the left periventricular region. The distribution is suggestive of demyelination and multiple sclerosis. Differential considerations discussed above.
No evidence for abnormal enhancement with no findings to suggest active demyelination. No significant mass effect.
Paranasal sinus disease as described.
Anticipated Discharge: > 48 hours
Subjective/Interval History
-
Date of Service: January 16, 2025
No acute events overnight. Feels well, continues to report [id number] left upper extremity, right fingertips. Weakness of left arm unchanged. Tolerating oral diet. Voiding spontaneously. Passed BM this morning, no black or bloody stool.
OOB to BR.
Objective Data
-
Labs:
Laboratory Results
01/16/25
06:44
WBC 20.0 H
Hgb 13.8
Hct 41.5
Plt Count 231
Sodium 143
Potassium 4.4
Chloride 106
Carbon Dioxide 29
BUN 17
Creatinine 0.7
Glucose 139 H
Calcium 9.2
Vital Signs:
Vital Signs
Temp Pulse Resp BP Pulse Ox
98.0 F 76 16 119/72 98
01/16/25 07:00 01/16/25 08:31 01/16/25 07:00 01/16/25 08:31 01/16/25 07:00
I&O
01/15/25 01/16/25 01/17/25
06:59 06:59 06:59
Intake Total 480 / 480 1140 / 1140 480 / 480
Balance 480 / 480 1140 / 1140 480 / 480
Review of Systems
-
History Source: Patient
All other systems: Reviewed and negative
Physical Exam
-
General: Well Developed, Well Nourished, No Apparent Distress, Comfortable and Conversant; Negative Pain, Fever, Chills or Sweats
HEENT: Normocephalic and Atraumatic
Respiratory: Clear to Auscultation and Non Labored Respirations; Negative Wheezes, Rales or Rhonchi
Cardiac: Regular Rhythm and S1/S2
GI: Soft, Nontender, Nondistended and Normal Bowel Sounds
Musculoskeletal: No Clubbing, No Cyanosis and No Edema
Skin: Warm and Dry
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 R arm 5/5 extension, L arm 3/5 extension. Symmetric facial expressions, eyebrow raise, no tongue deviation.); Negative
Facial Droop
Psych: Calm
Data Reviewed
-
CT Scan: Image personally visualized and interpreted and Report Reviewed by me
MRI: Report Reviewed by me
Labs: Labs Reviewed by me
--- NOTE | 2025-01-16 10:20 | W.PN.NEURO.1 ---
Today's Communication / Plan
-
.
Subjective/Objective
Subjective Data
Date of Service: January 16, 2025
Neurology follow-up report
Ms. Montgomery endorses no new symptoms. She was able to ambulate with no assistive device.
The patient tolerates steroids well send reports no side effects.
Brain MRI w/wo geremias(01/15/2025) nonenhancing foci of increased T2 and FLAIR signal with within the white matter of both hemispheres, more numerous on the left when compared to the right. There is left frontal periventricular involvement adjacent to
the frontal horn and anterior mid body of the left lateral ventricle. Scattered small foci within the deep and subcortical white matter of both hemispheres, with involvement of the frontal and parietal lobes, more numerous in the left hemisphere
compared to the right.
PMH: Dave syndrome, cervical DJD, HTN, DLP, BMI 32, vitamin D, B12 deficiency, migraine headache, chronic back pain
PSH:colonoscopies, hysterectomy with BSO, bilateral knee arthroscopies
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
FH: Mother in her 60s from stroke, father is alive with CKD and high blood pressure
All:NKDA
ROS: Constitutional: Negative. Negative for chills, fever and unexpected weight change.
HENT: Negative for ear pain, hearing loss, tinnitus and trouble swallowing.
Eyes: Negative. Negative for photophobia, pain and visual disturbance.
Respiratory: Negative for cough, choking and shortness of breath.
Cardiovascular: Negative for chest pain, palpitations and leg swelling.
Gastrointestinal: Positive for constipation
Endocrine: Negative. Negative for cold intolerance.
Genitourinary: Negative for dysuria, flank pain and urgency.
Musculoskeletal: Negative for back pain, gait problem, neck pain and neck stiffness.
Skin: Negative for rash.
Allergic/Immunologic: Negative. Negative for immunocompromised state.
Neurological: Positive for left arm and leg paresthesias and weakness
Psychiatric/Behavioral: Negative for behavioral problems, confusion and hallucinations.
General: Well developed. In no acute distress.
Cardio: Regular rate and rhythm without murmur. Extremities are without cyanosis or edema.
Neuro:
Mental Status: Alert, oriented to person, place, and date. Normal attention and recall. Good fund of knowledge. Follows complex requests across the midline. Comprehension, naming, and repetition intact. Immediate and delayed recall 3/3.
Cranial Nerves: Pupils are equally round and reactive to light. EOMs full. Visual garcia full to confrontation. No ptosis. No nystagmus. V1-V3 intact to light touch and pinprick bilaterally, symmetric. Face symmetric. Normal hearing AU. The
palate elevated well. SCMs and traps 5/5. Tongue midline. No dysarthria.
Motor: Normal bulk and tone. No pronator or arm drift. Strength 5/5 throughout except for left triceps�3 out of 5, left hip flexion�4 out of 5, left dorsiflexion�5- out of 5 no clonus.
Reflexes: 2+ throughout the upper extremities and 3+ knees. 2/2 in AJs. Negative Judy's bilaterally plantar responses flexor bilaterally.
Sensory: Reduced vibration at the toes and ankles compared to the fingers. Normal proprioception
Coordination: No dysmetria or tremor.
Gait: deferred
Assessment and Plan:
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
II. Dave syndrome
III. History of migraine headaches
-Fall precautions
-Follow-up myelopathy blood
-CSF(OP, CP, cell count, protein, glucose, OCB, MBP, POLO, cytology)
-Continue IV methylprednisolone 1 g QD(Day 2/3).
-DVT prophylaxis.
I personally reviewed all radiology and labs along with past medical records pertinent to current medical problems. Total time spent in patient care is 35 minutes.
Thank you for allowing us to participate in the care of this patient. We will continue to follow. Please do not hesitate to contact us with any questions or concerns.
Objective Data
Vital Signs
Temp Pulse Resp BP Pulse Ox
36.7 C 76 16 119/72 98
01/16/25 07:00 01/16/25 08:31 01/16/25 07:00 01/16/25 08:31 01/16/25 07:00
Lab Results
01/16/25 06:44
01/16/25 06:44
Sodium 143 mmol/L (135-145) 01/16/25 06:44
Potassium 4.4 mmol/L (3.5-5.1) 01/16/25 06:44
BUN 17 mg/dl (7-17) 01/16/25 06:44
Glucose 139 mg/dl (70-99) H 01/16/25 06:44
Calcium 9.2 mg/dl (8.4-10.2) 01/16/25 06:44
Vitamin B12 885 pg/ml (879-931) 01/14/25 16:27
Patient Allergies
No Known Allergies Allergy (Verified 01/14/25 11:58)
Vital Signs and Labs
-
Vital Signs and Labs:
Vital Signs
Temp Pulse Resp BP Pulse Ox
36.7 C 76 16 119/72 98
01/16/25 07:00 01/16/25 08:31 01/16/25 07:00 01/16/25 08:31 01/16/25 07:00
Lab Results
01/16/25 06:44
01/16/25 06:44
Sodium 143 mmol/L (135-145) 01/16/25 06:44
Potassium 4.4 mmol/L (3.5-5.1) 01/16/25 06:44
BUN 17 mg/dl (7-17) 01/16/25 06:44
Glucose 139 mg/dl (70-99) H 01/16/25 06:44
Calcium 9.2 mg/dl (8.4-10.2) 01/16/25 06:44
Vitamin B12 885 pg/ml (261-378) 01/14/25 16:27
Medications
-
Medications:
Generic Name Dose Route Start Last Admin
Trade Name Freq PRN Reason Stop Dose Admin
Acetaminophen 650 mg 01/14/25 22:01
Acetaminophen 325 Mg Tablet PO 02/11/25 22:00
Q4HPRN PRN
mild pain/WONG/temp> 100.4F
Acetaminophen/Butalbital/Caffeine 1 tab 01/14/25 22:01 01/15/25 21:29
Butalbit/Acetaminophen/Caffeine PO 02/11/25 22:00 1 tab
[id number] PRN Administration
migraines
Atorvastatin Calcium 40 mg 01/15/25 15:00 01/16/25 08:31
Atorvastatin (Lipitor) 40 Mg Tablet PO 02/12/25 14:59 40 mg
DAILY IRINA Administration
Bisacodyl 10 mg 01/14/25 22:01 01/15/25 08:07
Bisacodyl 10 Mg Rectal Suppository RECTAL 02/11/25 22:00 10 mg
[id number] PRN Administration
constipation
Calcium Carbonate 1,000 mg 01/15/25 08:00 01/16/25 08:30
Calcium Carbonate 500 Mg Tablet PO 02/12/25 07:59 1,000 mg
DAILY IRINA Administration
Cetirizine HCl 10 mg 01/15/25 08:00 01/16/25 08:31
Cetirizine Hcl 10 Mg Tablet PO 02/12/25 07:59 10 mg
DAILY IRINA Administration
Cholecalciferol 125 mcg 01/15/25 08:00 01/16/25 08:32
Cholecalciferol (Vitamin D3) 125 Mcg Tablet (5,000 Units) PO 02/12/25 07:59 125 mcg
DAILY IRINA Administration
Cyanocobalamin 1,000 mcg 01/15/25 08:00 01/16/25 08:31
Cyanocobalamin 1,000 Mcg Tablet PO 02/12/25 07:59 1,000 mcg
DAILY IRINA Administration
Docusate Sodium 100 mg 01/15/25 20:00 01/16/25 08:30
Docusate Sodium 100 Mg Capsule PO 02/12/25 19:59 Not Given
BID IRINA
Enoxaparin Sodium 40 mg 01/15/25 18:00 01/15/25 17:06
Enoxaparin Sodium 40 Mg/0.4 Ml Syringe SC 02/12/25 17:59 40 mg
QPM IRINA Administration
Methylprednisolone Sodium 258 mls @ 258 mls/hr 01/15/25 12:00 01/15/25 13:39
Succinate 1,000 mg/ Dextrose IV 01/17/25 12:59 258 mls
Q24H IRINA Administration
Lisinopril 5 mg 01/15/25 08:00 01/16/25 08:31
Lisinopril 5 Mg Tablet PO 02/12/25 07:59 5 mg
DAILY IRINA Administration
Pantoprazole Sodium 20 mg 01/15/25 11:00 01/16/25 08:30
Pantoprazole 20 Mg Delayed Release Tablet PO 02/12/25 10:59 20 mg
DAILY IRINA Administration
Polyethylene Glycol 17 grams 01/16/25 08:00 01/16/25 08:30
Polyethylene Glycol Powder 17 Grams Packet PO 02/13/25 07:59 Not Given
DAILY IRINA
Sodium Chloride 0 flush 01/14/25 22:00
Sodium Chloride 0.9% (Flush) Syringe IV 02/11/25 21:59
PER PROTOCOL IRINA
Home Medications
-
Home Medications
finofvgojs-cqhmgysnjfpre-qzsaqwfs 50 mg-325 mg-40 mg tablet 1 tab PO [id number] PRN migraines 03/03/17
calcium carbonate 1,200 mg PO DAILY 03/03/17
atorvastatin 40 mg tablet 40 mg PO DAILY 01/14/25
cetirizine 10 mg tablet 10 mg PO DAILY 01/14/25
cholecalciferol (vitamin D3) 125 mcg (5,000 unit) tablet (Vitamin D3) 125 mcg PO DAILY 01/14/25
cyanocobalamin (vitamin B-12) 1,000 mcg tablet 1,000 mcg PO DAILY 01/14/25
lisinopril 5 mg tablet 5 mg PO DAILY 01/14/25
omega 5-swm-mkt-fish oil 1,200 mg (144 mg-216 mg) capsule (Fish Oil) 1 cap PO DAILY 01/14/25
[2025-01-16 11:00] VITALS: BP 118/70
--- NOTE | 2025-01-16 11:17 | CM ---
Met with patient and spouse at bedside
Pharmacy verified: [facility] @ [address] [place] [address]
Lives w/ spouse; multilevel home; powder room 1s floor; 13 steps to 2nd floor bedroom and bath; railing on stairs; bath has stall shower
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
Spouse will transport
No SNF or home health utilization history
No other DME
If home health needed, preference is [facility]
Plan: Outpatient PT vs. no needs; CM will monitor and support as needed
[2025-01-16 11:42] LABS: Urine Albumin 2+ (Neg - Trace); Urine Bilirubin Negative (Negative); Urine Character Clear (Clear); Urine Color Yellow; Urine Glucose 1+ (Negative); Urine Ketone Negative (Negative); Urine Leukocyte 1+ (Negative); Urine Nitrite Negative (Negative); Urine Occult Blood 1+ (Negative); Urine Urobilinogen Negative (Neg - 1+)
[2025-01-16 12:16] LABS: Urine Mucus Many
[2025-01-16 12:18] LABS: Urine Bacteria Few (Negative); Urine Red Blood Cell 0-2 /HPF (0-2)
[2025-01-16] MEDS: SOLU-MEDROL 258 MG IV (12:26)
[2025-01-16 14:51] VITALS: BP 112/63
[2025-01-16] MEDS: LOVENOX 40 MG SC (17:57)
[2025-01-16 19:19] VITALS: BP 117/69
[2025-01-16 19:43] LABS: Angiotensin-1-converting Enzym 11 U/L (16-85)
[2025-01-16] MEDS: COLACE 100 MG PO (20:49)
[2025-01-16 23:00] VITALS: BP 104/62
[2025-01-17] VITALS (8 sets, daily range): BP systolic 64–130; BP diastolic 65–81
[2025-01-17 02:22] LABS: ANA, IgG Reflex to HEp-2 None Detected (None Detected)
[2025-01-17 07:12] LABS: Hematocrit 42.2 % (37.0-47.0); Hemoglobin 13.9 g/dL (12.0-16.0); Mean Corp Hgb Conc. 32.9 g/dL (33.0-37.0); Mean Corpuscular Volume 91.1 fL (81.0-99.0); Mean Platelet Volume 9.9 fL (7.4-10.4); Platelet Count 257 10^3/uL (130-400); Red Blood Cell Count 4.63 10^6/uL (4.20-5.40); Red Cell Dist. Width 14.6 % (11.5-14.5); White Blood Cell Count 29.5 10^3/uL (4.8-10.8)
[2025-01-17] MEDS: VITAMIN D3 (cholecalciferol) 125 MCG PO (07:33)
[2025-01-17] MEDS: COLACE PO ×2 (07:33→20:44)
[2025-01-17] MEDS: ZYRTEC 10 MG PO (07:33)
[2025-01-17] MEDS: LIPITOR 40 MG PO (07:33)
[2025-01-17] MEDS: PROTONIX 20 MG PO (07:33)
[2025-01-17] MEDS: MIRALAX PO (07:33)
[2025-01-17] MEDS: VITAMIN B-12 1000 MCG PO (07:34)
[2025-01-17] MEDS: OSCAL CAL 500 1000 MG PO (07:34)
[2025-01-17] MEDS: ZESTRIL 5 MG PO (07:34)
[2025-01-17] MEDS: FIORICET 1 TAB PO (07:35)
[2025-01-17 07:36] LABS: ALT (SGPT) 30 U/L (0-35); AST (SGOT) 18 U/L (14-36); Albumin 3.9 g/dl (3.5-5.0); Alkaline Phosphatase 102 U/L (38-126); Blood Urea Nitrogen 20 mg/dl (7-17); Calcium 9.2 mg/dl (8.4-10.2); Carbon Dioxide 30 mmol/L (22-30); Chloride 106 mmol/L (98-107); Direct Bilirubin 0.2 mg/dl (0.0-0.4); Estimated Creatinine Clearance 84 ml/min; Glucose 115 mg/dl (70-99); Magnesium 2.1 mg/dl (1.6-2.3); Potassium 4.4 mmol/L (3.5-5.1); Sodium 143 mmol/L (135-145); Total Bilirubin 0.5 mg/dl (0.2-1.3); Total Protein 6.4 g/dl (6.3-8.2); eGFR > 60.00
--- NOTE | 2025-01-17 09:09 | W.PN.HOSP.TC ---
Addendum entered and electronically signed by Bradford Carias MD 01/17/25 16:24:
Seen and examined by me independently in collaboration with the medical research tech Dr. Perkins.
Lab data and imaging data reviewed.
Addendum as below :
Patient improving with her neurological symptoms on IV pulse dose steroids.
Continue IV steroids as planned.
For lumbar puncture today for further evaluation of suspected immune related demyelinating SHOCK ABSORBER INSTALLER disease.
Discussed with neurology today on the floor.
Total time spent on today's encounter was 52 minutes which included time spent in counseling the patient/family regarding diagnosis and treatment plan as listed above, goals of care, and symptom management. Case was discussed with nursing staff,
specialists, and care coordinators/case management. All labs and imaging personally reviewed by me. Remainder the time spent in detailed review of previous records, lab data, imaging, and other medical provider documentation.
Original Note:
Today's Communication/Plan
-
LP today, follow-up on neurology labs pending
Assessment / Plan
Assessment / Plan
59-year-old female with past medical history of Dave syndrome, h/o sebaceous carcinoma, migraines, HTN, HLD who presented to ED for 2 weeks of paresthesias and weakness.
? SHOCK ABSORBER INSTALLER demyelinating disease--Apprec neuro-- head CT with no acute intracranial abnormality; MRI C-spine suggestive of transverse myelitis; MRI brain suggestive of MS--myelopathy workup pending; will be for LP with CSF eval per neuro, anticipate LP
this afternoon with IR-- Continue IV steroids 01/15-01/17 per neuro, GI ppx-- PT/OT, bladder scan PRN
Migraine-- Continue home Fioricet-- for mod-sev WONG, IV toradol 30mg, reglan 10mg, benadryl 25mg q8hprn per neuro
Constipation--continue standing bowel regimen
Essential hypertension-- continue home lisinopril
Leukocytosis--likely reactive plus effect of steroids--afebrile, no other signs/symptoms of infection --trend CBC
Hyperlipidemia-- continue home atorvastatin.
Mild elevation of ALT noted, resolved
Dave syndrome
osteoporosis
Hx Sebaceous carcinoma of right shoulder
Hx kidney stones
Code status: full code
DVT ppx: Lovenox sq
Diet: regular
Dispo planning: Anticipate discharge home when able, likely with outpatient PT/OT
Head CT 01/14/25
IMPRESSION:
No acute intracranial abnormality noted.
Cervical spine MRI 01/14/25
Within the cervical spinal cord at the C5-6 level, there is a focal area of patchy increased T2 and STIR signal, with somewhat poorly defined borders. This measures approximately 14 mm craniocaudal. On axial images, and appears to be predominantly
in the central spinal cord. There is no evidence for enhancement after contrast. This is a new finding compared to MRI of the cervical spine from May 01, 2016.
Given the clinical history, this would be considered suspicious for a focal area of transverse myelitis/demyelination, although without enhancement with contrast. There is no significant volume loss of the spinal cord, likely myelomalacia would be
less likely. Although there are some changes of degenerative disc disease, there does not appear to be high-grade stenosis, and therefore cord edema from cord compression would seem unlikely. Also, I have no reported history of recent injury to the
neck.
No other signal intensity abnormality in the cervical or visualized upper thoracic spinal cord.
IMPRESSION: Focal somewhat pointed defined signal intensity abnormality within the cervical spinal cord at the C5-6 level as described, with no evidence for abnormal enhancement. Given the clinical symptoms, this is suspicious for a focal area of
transverse myelitis or demyelination, although without evidence for active enhancement/inflammation.
Changes of degenerative disc disease. Borderline mild overall central canal stenosis at C5-6.
Thoracic spine MRI 01/14/25
IMPRESSION: Normal morphology and signal intensity of the thoracic spinal cord with no evidence for abnormal enhancement.
No evidence for spinal cord compression.
Focal intermediate T1 and T2-weighted signal within the posterior aspect of the left lower lobe. Statistically, this is most likely atelectasis.
Brain MRI 01/15/25
There are foci of increased T2 and FLAIR signal with within the white matter of both hemispheres, more numerous on the left when compared to the right. There is left frontal periventricular involvement adjacent to the frontal horn and anterior mid
body of the left lateral ventricle. Scattered small foci within the deep and subcortical white matter of both hemispheres, with involvement of the frontal and parietal lobes, more numerous in the left hemisphere compared to the right.
With the periventricular predominance, findings are most suggestive of demyelinating process, such as multiple sclerosis. Differential consideration of Lyme disease. White matter hyperintensities are nonspecific, and vasculitis could also be
considered. Advanced small vessel ischemic change would be the next main differential consideration.
IMPRESSION: Foci of increased T2 and FLAIR signal as described, including involvement in the left periventricular region. The distribution is suggestive of demyelination and multiple sclerosis. Differential considerations discussed above.
No evidence for abnormal enhancement with no findings to suggest active demyelination. No significant mass effect.
Paranasal sinus disease as described.
Anticipated Discharge: 24 - 48 hours
Subjective/Interval History
-
Date of Service: January 17, 2025
No acute events overnight. Feels well, continues to report [id number]-wpfewkv left upper extremity, right fingertips; notes that on her left arm it feels worst at axilla and fingertips.. Weakness of left arm unchanged. Review of systems negative--
denies dizziness, chest pain, shortness of breath, abdominal pain, nausea, vomiting, diarrhea, constipation. Tolerating oral diet. Voiding spontaneously. OOB to BR without issue.
Objective Data
-
Labs:
Laboratory Results
01/17/25
06:52
WBC 29.5 H
Hgb 13.9
Hct 42.2
Plt Count 257
Sodium 143
Potassium 4.4
Chloride 106
Carbon Dioxide 30
BUN 20 H
Creatinine 0.7
Glucose 115 H
Calcium 9.2
Total Bilirubin 0.5
AST 18
ALT 30
Alkaline Phosphatase 102
Vital Signs:
Vital Signs
Temp Pulse Resp BP Pulse Ox
97.6 F 67 18 127/75 97
01/17/25 07:17 01/17/25 07:34 01/17/25 07:17 01/17/25 07:34 01/17/25 07:17
I&O
01/16/25 01/17/25 01/18/25
06:59 06:59 06:59
Intake Total 1140 / 1140 2838 / 2838
Balance 1140 / 1140 2838 / 2838
Review of Systems
-
History Source: Patient
All other systems: Reviewed and negative
Physical Exam
-
General: Well Developed, Well Nourished, No Apparent Distress, Comfortable and Conversant; Negative Pain, Fever, Chills or Sweats
HEENT: Normocephalic and Atraumatic
Respiratory: Clear to Auscultation and Non Labored Respirations; Negative Wheezes, Rales or Rhonchi
Cardiac: Regular Rhythm and S1/S2
GI: Soft, Nontender, Nondistended and Normal Bowel Sounds
Musculoskeletal: No Clubbing, No Cyanosis and No Edema
Skin: Warm and Dry
Neuro: Awake, Alert, AO x 3 and Other (Upper extremities with aoc airspace control officer strength 5/5 and flexion 5/5, both symmetric bilaterally. R arm 5/5 extension, L arm 3/5 extension. Symmetric facial expressions, eyebrow raise, no tongue deviation.); Negative
Facial Droop
Psych: Calm
Data Reviewed
-
CT Scan: Image personally visualized and interpreted and Report Reviewed by me
MRI: Report Reviewed by me
Labs: Labs Reviewed by me
[2025-01-17] MEDS: SOLU-MEDROL 258 MG IV (11:30)
--- NOTE | 2025-01-17 12:10 | CM ---
Patient seen at bedside.
PT rec outpatient vs. no needs
PLAN: Home, will require script for outpatient therapy
[2025-01-17 12:43] LABS: Lyme Antibody Screen, EIA Negative (Negative)
[2025-01-17 13:23] LABS: Syphilis/T. pallidum Ab Reflex Negative (Negative)
--- NOTE | 2025-01-17 14:15 | PTCARENOTE ---
Received pt from IR via stretcher. Bedrest, bathroom privileges. Stretcher placed next to bed, pt stood and pivoted into bed. Band aide assessed on middle lower back.
[2025-01-17 15:45] LABS: CSF Color Colorless; CSF Tube # 4; CSF Tube # Clarity Clear; Red Cell Count/CSF 1 mm^3
[2025-01-17 15:45] LABS: CSF Clarity Clear; CSF Color Colorless; CSF Tube # 1; Red Cell Count/CSF 89 mm^3; White Cell Count/CSF 2 mm^3 (0-5)
[2025-01-17 15:49] LABS: White Blood Cell Count/CSF 2 mm^3 (0-5)
--- NOTE | 2025-01-17 16:34 | W.PN.NEURO.1 ---
Today's Communication / Plan
-
.
Subjective/Objective
Subjective Data
Date of Service: January 17, 2025
Neurology follow-up report
Ms. Montgomery endorses ongoing left hand and left foot numbness. Paresthesias in the left forearm have been improving.
No reports of headaches following lumbar puncture.
CSF studies�opening pressure�33, clonus pressure�22.
The patient tolerates steroids well send reports no side effects.
Brain MRI w/wo geremias(01/15/2025) nonenhancing foci of increased T2 and FLAIR signal with within the white matter of both hemispheres, more numerous on the left when compared to the right. There is left frontal periventricular involvement adjacent to
the frontal horn and anterior mid body of the left lateral ventricle. Scattered small foci within the deep and subcortical white matter of both hemispheres, with involvement of the frontal and parietal lobes, more numerous in the left hemisphere
compared to the right.
PMH: Dave syndrome, cervical DJD, HTN, DLP, BMI 32, vitamin D, B12 deficiency, migraine headache, chronic back pain
PSH:colonoscopies, hysterectomy with BSO, bilateral knee arthroscopies
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
FH: Mother in her 60s from stroke, father is alive with CKD and high blood pressure.
All:NKDA
ROS: Constitutional: Negative. Negative for chills, fever and unexpected weight change.
HENT: Negative for ear pain, hearing loss, tinnitus and trouble swallowing.
Eyes: Negative. Negative for photophobia, pain and visual disturbance.
Respiratory: Negative for cough, choking and shortness of breath.
Cardiovascular: Negative for chest pain, palpitations and leg swelling.
Gastrointestinal: Positive for constipation
Endocrine: Negative. Negative for cold intolerance.
Genitourinary: Negative for dysuria, flank pain and urgency.
Musculoskeletal: Negative for back pain, gait problem, neck pain and neck stiffness.
Skin: Negative for rash.
Allergic/Immunologic: Negative. Negative for immunocompromised state.
Neurological: Positive for left arm and leg paresthesias and weakness
Psychiatric/Behavioral: Negative for behavioral problems, confusion and hallucinations.
General: Well developed. In no acute distress.
Cardio: Regular rate and rhythm without murmur. Extremities are without cyanosis or edema.
Neuro:
Mental Status: Alert, oriented to person, place, and date. Normal attention and recall. Good fund of knowledge. Follows complex requests across the midline. Comprehension, naming, and repetition intact. Immediate and delayed recall 3/3.
Cranial Nerves: Pupils are equally round and reactive to light. EOMs full. Visual garcia full to confrontation. No ptosis. No nystagmus. V1-V3 intact to light touch and pinprick bilaterally, symmetric. Face symmetric. Normal hearing AU. The
palate elevated well. SCMs and traps 5/5. Tongue midline. No dysarthria.
Motor: Normal bulk and tone. No pronator or arm drift. Strength 5/5 throughout except for left triceps�3 out of 5, left hip flexion�4 out of 5, left dorsiflexion�5- out of 5 no clonus.
Reflexes: 2+ throughout the upper extremities and 3+ knees. 2/2 in AJs. Negative Judy's bilaterally plantar responses flexor bilaterally.
Sensory: Reduced vibration at the toes and ankles compared to the fingers. Normal proprioception
Coordination: Intermittent dysmetria on [id number] on the left. Mild action hand tremor
Gait: deferred
Assessment and Plan:
I. 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
II. Idiopathic intracranial hypertension.
III. Dave syndrome
-Fall precautions
-Follow-up myelopathy blood
-Start Diamox to 250 mg twice daily with titration to 500 mg twice daily as tolerated in 3-5 days. Please monitor bicarb level.
-Please follow-up CSF studies
-Outpatient neurology follow-up with Dr. Peralta in 2 weeks
-Outpatient ophthalmology consult
-Case was discussed with patient's
I personally reviewed all radiology and labs along with past medical records pertinent to current medical problems. Total time spent in patient care is 40 minutes.
Thank you for allowing us to participate in the care of this patient. We will continue to follow. Please do not hesitate to contact us with any questions or concerns.
Objective Data
Vital Signs
Temp Pulse Resp BP Pulse Ox
37.3 C 66 16 113/73 97
01/17/25 14:31 01/17/25 14:31 01/17/25 14:31 01/17/25 14:31 01/17/25 14:31
Lab Results
01/17/25 06:52
01/17/25 06:52
Sodium 143 mmol/L (135-145) 01/17/25 06:52
Potassium 4.4 mmol/L (3.5-5.1) 01/17/25 06:52
BUN 20 mg/dl (7-17) H 01/17/25 06:52
Glucose 115 mg/dl (70-99) H 01/17/25 06:52
Calcium 9.2 mg/dl (8.4-10.2) 01/17/25 06:52
Vitamin B12 885 pg/ml (239-931) 01/14/25 16:27
Patient Allergies
No Known Allergies Allergy (Verified 01/14/25 11:58)
Vital Signs and Labs
-
Vital Signs and Labs:
Vital Signs
Temp Pulse Resp BP Pulse Ox
37.3 C 66 16 113/73 97
01/17/25 14:31 01/17/25 14:31 01/17/25 14:31 01/17/25 14:31 01/17/25 14:31
Lab Results
01/17/25 06:52
01/17/25 06:52
Sodium 143 mmol/L (135-145) 01/17/25 06:52
Potassium 4.4 mmol/L (3.5-5.1) 01/17/25 06:52
BUN 20 mg/dl (7-17) H 01/17/25 06:52
Glucose 115 mg/dl (70-99) H 01/17/25 06:52
Calcium 9.2 mg/dl (8.4-10.2) 01/17/25 06:52
Vitamin B12 885 pg/ml (239-931) 01/14/25 16:27
Medications
-
Medications:
Generic Name Dose Route Start Last Admin
Trade Name Freq PRN Reason Stop Dose Admin
Acetaminophen 650 mg 01/14/25 22:01
Acetaminophen 325 Mg Tablet PO 02/11/25 22:00
Q4HPRN PRN
mild pain/WONG/temp> 100.4F
Acetaminophen/Butalbital/Caffeine 1 tab 01/14/25 22:01 01/17/25 07:35
Butalbit/Acetaminophen/Caffeine PO 02/11/25 22:00 1 tab
[id number] PRN Administration
migraines
Acetazolamide 250 mg 01/17/25 20:00
Acetazolamide 250 Mg Tablet PO 02/14/25 19:59
BID IRINA
Atorvastatin Calcium 40 mg 01/15/25 15:00 01/17/25 07:33
Atorvastatin (Lipitor) 40 Mg Tablet PO 02/12/25 14:59 40 mg
DAILY IRINA Administration
Bisacodyl 10 mg 01/14/25 22:01 01/15/25 08:07
Bisacodyl 10 Mg Rectal Suppository RECTAL 02/11/25 22:00 10 mg
[id number] PRN Administration
constipation
Calcium Carbonate 1,000 mg 01/15/25 08:00 01/17/25 07:34
Calcium Carbonate 500 Mg Tablet PO 02/12/25 07:59 1,000 mg
DAILY IRINA Administration
Cetirizine HCl 10 mg 01/15/25 08:00 01/17/25 07:33
Cetirizine Hcl 10 Mg Tablet PO 02/12/25 07:59 10 mg
DAILY IRINA Administration
Cholecalciferol 125 mcg 01/15/25 08:00 01/17/25 07:33
Cholecalciferol (Vitamin D3) 125 Mcg Tablet (5,000 Units) PO 02/12/25 07:59 125 mcg
DAILY IRINA Administration
Cyanocobalamin 1,000 mcg 01/15/25 08:00 01/17/25 07:34
Cyanocobalamin 1,000 Mcg Tablet PO 02/12/25 07:59 1,000 mcg
DAILY IRINA Administration
Docusate Sodium 100 mg 01/15/25 20:00 01/17/25 17:15
Docusate Sodium 100 Mg Capsule PO 02/12/25 19:59 100 mg
BID IRINA Administration
Enoxaparin Sodium 40 mg 01/15/25 18:00 01/17/25 17:11
Enoxaparin Sodium 40 Mg/0.4 Ml Syringe SC 02/12/25 17:59 40 mg
QPM IRINA Administration
Lisinopril 5 mg 01/15/25 08:00 01/17/25 07:34
Lisinopril 5 Mg Tablet PO 02/12/25 07:59 5 mg
DAILY IRINA Administration
Pantoprazole Sodium 20 mg 01/15/25 11:00 01/17/25 07:33
Pantoprazole 20 Mg Delayed Release Tablet PO 02/12/25 10:59 20 mg
DAILY IRINA Administration
Polyethylene Glycol 17 grams 01/16/25 08:00 01/17/25 17:15
Polyethylene Glycol Powder 17 Grams Packet PO 02/13/25 07:59 17 grams
DAILY IRINA Administration
Sodium Chloride 0 flush 01/14/25 22:00
Sodium Chloride 0.9% (Flush) Syringe IV 02/11/25 21:59
PER PROTOCOL IRINA
Home Medications
-
Home Medications
liewdpmpwo-mlrgimnyzqivb-beoknxur 50 mg-325 mg-40 mg tablet 1 tab PO [id number] PRN migraines 03/03/17
calcium carbonate 1,200 mg PO DAILY Supplement 03/03/17
atorvastatin 40 mg tablet 40 mg PO DAILY High Cholesterol 01/14/25
cetirizine 10 mg tablet 10 mg PO DAILY Allergies 01/14/25
cholecalciferol (vitamin D3) 125 mcg (5,000 unit) tablet (Vitamin D3) 125 mcg PO DAILY Supplement 01/14/25
cyanocobalamin (vitamin B-12) 1,000 mcg tablet 1,000 mcg PO DAILY Supplement 01/14/25
lisinopril 5 mg tablet 5 mg PO DAILY Blood Pressure 01/14/25
omega 0-dqi-edr-fish oil 1,200 mg (144 mg-216 mg) capsule (Fish Oil) 1 cap PO DAILY Supplement 01/14/25
[2025-01-17 16:46] LABS: Spinal Fluid Glucose 77 mg/dl (40-70)
[2025-01-17] MEDS: LOVENOX 40 MG SC (17:11)
[2025-01-17] MEDS: COLACE 100 MG PO (17:15)
[2025-01-17] MEDS: MIRALAX 17 GRAMS PO (17:15)
[2025-01-17] MEDS: DIAMOX 250 MG PO (20:40)
[2025-01-17 21:25] LABS: Albumin 3.78 g/dL (3.75-5.01); Alpha 1 Globulin 0.25 g/dL (0.19-0.46); Alpha 2 Globulin 0.72 g/dL (0.48-1.05); SPEP IFE Reflex Not Done; Total Protein-Electrophoresis 6.3 g/dL (6.3-8.2)
[2025-01-18 06:39] LABS: Hematocrit 41.5 % (37.0-47.0); Hemoglobin 13.7 g/dL (12.0-16.0); Mean Corpuscular Hgb 30.2 pg (27.0-31.0); Mean Corpuscular Volume 91.6 fL (81.0-99.0); Mean Platelet Volume 9.9 fL (7.4-10.4); Platelet Count 233 10^3/uL (130-400); Red Blood Cell Count 4.53 10^6/uL (4.20-5.40); Red Cell Dist. Width 14.6 % (11.5-14.5); White Blood Cell Count 21.2 10^3/uL (4.8-10.8)
[2025-01-18 07:32] VITALS: BP 133/84
[2025-01-18 07:38] LABS: Blood Urea Nitrogen 18 mg/dl (7-17); Carbon Dioxide 27 mmol/L (22-30); Chloride 111 mmol/L (98-107); Estimated Creatinine Clearance 65 ml/min; Glucose 88 mg/dl (70-99); Magnesium 2.2 mg/dl (1.6-2.3); Sodium 144 mmol/L (135-145); eGFR > 60.00
[2025-01-18] MEDS: PROTONIX 20 MG PO (07:41)
[2025-01-18] MEDS: VITAMIN D3 (cholecalciferol) 125 MCG PO (07:41)
[2025-01-18] MEDS: VITAMIN B-12 1000 MCG PO (07:41)
[2025-01-18] MEDS: ZESTRIL 5 MG PO (07:41)
[2025-01-18] MEDS: DIAMOX 250 MG PO (07:41)
[2025-01-18] MEDS: LIPITOR 40 MG PO (07:41)
[2025-01-18] MEDS: OSCAL CAL 500 1000 MG PO (07:41)
[2025-01-18] MEDS: MIRALAX 17 GRAMS PO (07:42)
[2025-01-18] MEDS: COLACE PO (07:42)
[2025-01-18] MEDS: ZYRTEC 10 MG PO (07:42)
--- NOTE | 2025-01-18 09:12 | W.PN.NEURO.1 ---
Today's Communication / Plan
-
.
Subjective/Objective
Subjective Data
Date of Service: January 18, 2025
Neurology follow-up report
Ms. Montgomery endorses ongoing left hand and foot paresthesias. No reprots of headaches, change in vision. She tolerates Diamox well.
PMH: Dave syndrome, cervical DJD, HTN, DLP, BMI 32, vitamin D, B12 deficiency, migraine headache, chronic back pain
PSH:colonoscopies, hysterectomy with BSO, bilateral knee arthroscopies
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
FH: Mother in her 60s from stroke, father is alive with CKD and high blood pressure.
All:NKDA
ROS: Constitutional: Negative. Negative for chills, fever and unexpected weight change.
HENT: Negative for ear pain, hearing loss, tinnitus and trouble swallowing.
Eyes: Negative. Negative for photophobia, pain and visual disturbance.
Respiratory: Negative for cough, choking and shortness of breath.
Cardiovascular: Negative for chest pain, palpitations and leg swelling.
Gastrointestinal: Positive for constipation
Endocrine: Negative. Negative for cold intolerance.
Genitourinary: Negative for dysuria, flank pain and urgency.
Musculoskeletal: Negative for back pain, gait problem, neck pain and neck stiffness.
Skin: Negative for rash.
Allergic/Immunologic: Negative. Negative for immunocompromised state.
Neurological: Positive for left arm and leg paresthesias and weakness
Psychiatric/Behavioral: Negative for behavioral problems, confusion and hallucinations.
General: Well developed. In no acute distress.
Cardio: Regular rate and rhythm without murmur. Extremities are without cyanosis or edema.
Neuro:
Mental Status: Alert, oriented to person, place, and date. Normal attention and recall. Good fund of knowledge. Follows complex requests across the midline. Comprehension, naming, and repetition intact. Immediate and delayed recall 3/3.
Cranial Nerves: Pupils are equally round and reactive to light. EOMs full. Visual garcia full to confrontation. No ptosis. No nystagmus. V1-V3 intact to light touch and pinprick bilaterally, symmetric. Face symmetric. Normal hearing AU. The
palate elevated well. SCMs and traps 5/5. Tongue midline. No dysarthria.
Motor: Normal bulk and tone. No pronator or arm drift. Strength 5/5 throughout except for left triceps�3 out of 5, left hip flexion�4 out of 5, left dorsiflexion�5- out of 5 no clonus.
Reflexes: 2+ throughout the upper extremities and 3+ knees. 2/2 in AJs. Negative Judy's bilaterally plantar responses flexor bilaterally.
Sensory: Reduced vibration at the toes and ankles compared to the fingers. Normal proprioception
Coordination: Intermittent dysmetria on mofkjn-[id number] on the left. Mild action hand tremor
Gait: deferred
Assessment and Plan:
I. 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
II. Idiopathic intracranial hypertension.
III. Dave syndrome
-Fall precautions
-Follow-up myelopathy blood
-Continue Diamox to 250 mg twice daily with titration to 500 mg twice daily as tolerated in 3-5 days. Please monitor bicarb level.
-Start Neurontin 100 mg QHS with titration by 100 mg every 3 days as tolerated.
-Please follow-up CSF studies
-Outpatient ophthalmology consult
-Outpatient neurology follow-up with Dr. Peralta in 2 weeks
I personally reviewed all radiology and labs along with past medical records pertinent to current medical problems. Total time spent in patient care is 35 minutes.
Thank you for allowing us to participate in the care of this patient. Please do not hesitate to contact us with any questions or concerns.
Objective Data
Vital Signs
Temp Pulse Resp BP Pulse Ox
36.6 C 64 12 133/84 100
01/18/25 07:32 01/18/25 07:41 01/18/25 07:32 01/18/25 07:41 01/18/25 07:32
Lab Results
01/18/25 06:25
01/18/25 06:25
Sodium 144 mmol/L (135-145) 01/18/25 06:25
Potassium 4.0 mmol/L (3.5-5.1) 01/18/25 06:25
BUN 18 mg/dl (7-17) H 01/18/25 06:25
Glucose 88 mg/dl (70-99) 01/18/25 06:25
Calcium 9.0 mg/dl (8.4-10.2) 01/18/25 06:25
Vitamin B12 885 pg/ml (471-800) 01/14/25 16:27
Patient Allergies
No Known Allergies Allergy (Verified 01/14/25 11:58)
Vital Signs and Labs
-
Vital Signs and Labs:
Vital Signs
Temp Pulse Resp BP Pulse Ox
36.6 C 64 12 133/84 100
01/18/25 07:32 01/18/25 07:41 01/18/25 07:32 01/18/25 07:41 01/18/25 09:12
Lab Results
01/18/25 06:25
01/18/25 06:25
Sodium 144 mmol/L (135-145) 01/18/25 06:25
Potassium 4.0 mmol/L (3.5-5.1) 01/18/25 06:25
BUN 18 mg/dl (7-17) H 01/18/25 06:25
Glucose 88 mg/dl (70-99) 01/18/25 06:25
Calcium 9.0 mg/dl (8.4-10.2) 01/18/25 06:25
Vitamin B12 885 pg/ml (079-521) 01/14/25 16:27
Medications
-
Medications:
Generic Name Dose Route Start Last Admin
Trade Name Freq PRN Reason Stop Dose Admin
Acetaminophen 650 mg 01/14/25 22:01
Acetaminophen 325 Mg Tablet PO 02/11/25 22:00
Q4HPRN PRN
mild pain/WONG/temp> 100.4F
Acetaminophen/Butalbital/Caffeine 1 tab 01/14/25 22:01 01/17/25 07:35
Butalbit/Acetaminophen/Caffeine PO 02/11/25 22:00 1 tab
[id number] PRN Administration
migraines
Acetazolamide 250 mg 01/17/25 20:00 01/18/25 07:41
Acetazolamide 250 Mg Tablet PO 02/14/25 19:59 250 mg
BID IRINA Administration
Atorvastatin Calcium 40 mg 01/15/25 15:00 01/18/25 07:41
Atorvastatin (Lipitor) 40 Mg Tablet PO 02/12/25 14:59 40 mg
DAILY IRINA Administration
Bisacodyl 10 mg 01/14/25 22:01 01/15/25 08:07
Bisacodyl 10 Mg Rectal Suppository RECTAL 02/11/25 22:00 10 mg
[id number] PRN Administration
constipation
Calcium Carbonate 1,000 mg 01/15/25 08:00 01/18/25 07:41
Calcium Carbonate 500 Mg Tablet PO 02/12/25 07:59 1,000 mg
DAILY IRINA Administration
Cetirizine HCl 10 mg 01/15/25 08:00 01/18/25 07:42
Cetirizine Hcl 10 Mg Tablet PO 02/12/25 07:59 10 mg
DAILY IRINA Administration
Cholecalciferol 125 mcg 01/15/25 08:00 01/18/25 07:41
Cholecalciferol (Vitamin D3) 125 Mcg Tablet (5,000 Units) PO 02/12/25 07:59 125 mcg
DAILY IRINA Administration
Cyanocobalamin 1,000 mcg 01/15/25 08:00 01/18/25 07:41
Cyanocobalamin 1,000 Mcg Tablet PO 02/12/25 07:59 1,000 mcg
DAILY IRINA Administration
Docusate Sodium 100 mg 01/15/25 20:00 01/18/25 07:42
Docusate Sodium 100 Mg Capsule PO 02/12/25 19:59 Not Given
BID IRINA
Enoxaparin Sodium 40 mg 01/15/25 18:00 01/17/25 17:11
Enoxaparin Sodium 40 Mg/0.4 Ml Syringe SC 02/12/25 17:59 40 mg
QPM IRINA Administration
Lisinopril 5 mg 01/15/25 08:00 01/18/25 07:41
Lisinopril 5 Mg Tablet PO 02/12/25 07:59 5 mg
DAILY IRINA Administration
Pantoprazole Sodium 20 mg 01/15/25 11:00 01/18/25 07:41
Pantoprazole 20 Mg Delayed Release Tablet PO 02/12/25 10:59 20 mg
DAILY IRINA Administration
Polyethylene Glycol 17 grams 01/16/25 08:00 01/18/25 07:42
Polyethylene Glycol Powder 17 Grams Packet PO 02/13/25 07:59 17 grams
DAILY IRINA Administration
Sodium Chloride 0 flush 01/14/25 22:00
Sodium Chloride 0.9% (Flush) Syringe IV 02/11/25 21:59
PER PROTOCOL IRINA
Home Medications
-
Home Medications
ikkpxjoxjq-phoihwqtcpyzg-ckxdvsqj 50 mg-325 mg-40 mg tablet 1 tab PO [id number] PRN migraines 03/03/17
calcium carbonate 1,200 mg PO DAILY Supplement 03/03/17
atorvastatin 40 mg tablet 40 mg PO DAILY High Cholesterol 01/14/25
cetirizine 10 mg tablet 10 mg PO DAILY Allergies 01/14/25
cholecalciferol (vitamin D3) 125 mcg (5,000 unit) tablet (Vitamin D3) 125 mcg PO DAILY Supplement 01/14/25
cyanocobalamin (vitamin B-12) 1,000 mcg tablet 1,000 mcg PO DAILY Supplement 01/14/25
lisinopril 5 mg tablet 5 mg PO DAILY Blood Pressure 01/14/25
omega 1-vhr-nyv-fish oil 1,200 mg (144 mg-216 mg) capsule (Fish Oil) 1 cap PO DAILY Supplement 01/14/25
--- NOTE | 2025-01-18 09:52 | W.PN.HOSP.TC ---
Addendum entered and electronically signed by Bradford Carias MD 01/18/25 13:55:
Seen and examined by me independently in collaboration with the medical technical writer .
Lab data and imaging data reviewed.
Addendum as below :
Patient feels improved with regards to her neurological symptoms. Improved strength in the left side. Still has persistent left-sided paresthesias with tingling numbness. Both in the left arm and the left leg. Minimal in the right fingers.
Denies any headache or visual symptoms.
Left arm compared to right is weaker not left elbow extension 3 out of 5 , handgrip 4+ out of 5 motor and rest of the limb 5 out of 5.
No facial asymmetry.
Lumbar puncture noted. Increased pressures of 33 cm of water noted. No intracranial mass lesions on the MRI of the brain. Clinical concern for idiopathic increased intracranial hypertension but no headache or visual symptoms currently. Started
on Diamox by neurology. Would need an outpatient ophthalmology eval-referral given.
Finished pulse dose of steroids. No indication for steroid taper by neurology. Gabapentin initiated for sensory symptoms. Follow-up with neurology with regards to rest of the lab work from [facility].
Seen by PT who recommends home therapy.
Medically stable for discharge home. Patient to follow-up with neurology as an outpatient.
Total time of discharge 32 minutes.
Original Note:
Today's Communication/Plan
-
Discharge home, outpatient neuro follow-up, outpatient PT/OT
Assessment / Plan
Assessment / Plan
59-year-old female with past medical history of Dave syndrome, h/o sebaceous carcinoma, migraines, HTN, HLD who presented to ED for 2 weeks of paresthesias and weakness.
? MILITARY PILOT demyelinating disease--Apprec neuro-- head CT with no acute intracranial abnormality; MRI C-spine suggestive of transverse myelitis; MRI brain suggestive of MS--myelopathy workup pending; s/p LP 01/17, results pending-- s/p IV steroids
01/15-01/17 per neuro, will check taper regimen--stable for discharge home with outpatient neuro follow-up (Fabian); she knows to log into her chart to view test results and can call hospitalist office if need be-- continue pt/ot outpt, script
provided in chart
Idiopathic intracranial hypertension-- LP opening pressure 33 mmHg-- apprec neuro-- started on diamox 250mg bid per neuro-- follow up with neuro outpatient
Migraine-- Continue home Fioricet-- for mod-sev WONG, IV toradol 30mg, reglan 10mg, benadryl 25mg q8hprn per neuro
Constipation--continue standing bowel regimen; counseled on daily miralax and sennakot prn
Essential hypertension-- continue home lisinopril
Leukocytosis--likely reactive plus effect of steroids--afebrile, no other signs/symptoms of infection --trend CBC, downtrending
Hyperlipidemia-- continue home atorvastatin.
Mild elevation of ALT noted, resolved
Dave syndrome
osteoporosis
Hx Sebaceous carcinoma of right shoulder
Hx kidney stones
Code status: full code
DVT ppx: Lovenox sq
Diet: regular
Dispo planning: Anticipate discharge today, outpatient PT/OT
Head CT 01/14/25
IMPRESSION:
No acute intracranial abnormality noted.
Cervical spine MRI 01/14/25
Within the cervical spinal cord at the C5-6 level, there is a focal area of patchy increased T2 and STIR signal, with somewhat poorly defined borders. This measures approximately 14 mm craniocaudal. On axial images, and appears to be predominantly
in the central spinal cord. There is no evidence for enhancement after contrast. This is a new finding compared to MRI of the cervical spine from May 01, 2016.
Given the clinical history, this would be considered suspicious for a focal area of transverse myelitis/demyelination, although without enhancement with contrast. There is no significant volume loss of the spinal cord, likely myelomalacia would be
less likely. Although there are some changes of degenerative disc disease, there does not appear to be high-grade stenosis, and therefore cord edema from cord compression would seem unlikely. Also, I have no reported history of recent injury to the
neck.
No other signal intensity abnormality in the cervical or visualized upper thoracic spinal cord.
IMPRESSION: Focal somewhat pointed defined signal intensity abnormality within the cervical spinal cord at the C5-6 level as described, with no evidence for abnormal enhancement. Given the clinical symptoms, this is suspicious for a focal area of
transverse myelitis or demyelination, although without evidence for active enhancement/inflammation.
Changes of degenerative disc disease. Borderline mild overall central canal stenosis at C5-6.
Thoracic spine MRI 01/14/25
IMPRESSION: Normal morphology and signal intensity of the thoracic spinal cord with no evidence for abnormal enhancement.
No evidence for spinal cord compression.
Focal intermediate T1 and T2-weighted signal within the posterior aspect of the left lower lobe. Statistically, this is most likely atelectasis.
Brain MRI 01/15/25
There are foci of increased T2 and FLAIR signal with within the white matter of both hemispheres, more numerous on the left when compared to the right. There is left frontal periventricular involvement adjacent to the frontal horn and anterior mid
body of the left lateral ventricle. Scattered small foci within the deep and subcortical white matter of both hemispheres, with involvement of the frontal and parietal lobes, more numerous in the left hemisphere compared to the right.
With the periventricular predominance, findings are most suggestive of demyelinating process, such as multiple sclerosis. Differential consideration of Lyme disease. White matter hyperintensities are nonspecific, and vasculitis could also be
considered. Advanced small vessel ischemic change would be the next main differential consideration.
IMPRESSION: Foci of increased T2 and FLAIR signal as described, including involvement in the left periventricular region. The distribution is suggestive of demyelination and multiple sclerosis. Differential considerations discussed above.
No evidence for abnormal enhancement with no findings to suggest active demyelination. No significant mass effect.
Paranasal sinus disease as described.
Anticipated Discharge: Today
Subjective/Interval History
-
Date of Service: January 18, 2025
No acute events overnight. Feels well, continues to report [id number] left upper extremity, right fingertips, left foot; slight improvement with steroids; notes that it is worse on her left fingertips and left foot today. Weakness of left
arm unchanged. Review of systems negative-- denies headache, visual changes, dizziness, chest pain, shortness of breath, abdominal pain, nausea, vomiting, diarrhea. Tolerating oral diet. Voiding spontaneously. OOB to BR without issue. Last BM 2
days ago.
Objective Data
-
Labs:
Laboratory Results
01/18/25
06:25
WBC 21.2 H
Hgb 13.7
Hct 41.5
Plt Count 233
Sodium 144
Potassium 4.0
Chloride 111 H
Carbon Dioxide 27
BUN 18 H
Creatinine 0.9
Glucose 88
Calcium 9.0
01/15/25 08:16 Csf CSF Culture - Preliminary
No Growth After 18-24 Hours
01/15/25 08:16 Csf Gram Stain - Preliminary
01/17/25 13:30 Csf Meningitis/Encephalitis Panel (PCR) - Final
Vital Signs:
Vital Signs
Temp Pulse Resp BP Pulse Ox
97.8 F 64 12 133/84 100
01/18/25 07:32 01/18/25 07:41 01/18/25 07:32 01/18/25 07:41 01/18/25 09:12
I&O
01/17/25 01/18/25 01/19/25
06:59 06:59 06:59
Intake Total 2838 / 2838 1488 / 1488
Balance 2838 / 2838 1488 / 1488
Review of Systems
-
History Source: Patient
All other systems: Reviewed and negative
Physical Exam
-
General: Well Developed, Well Nourished, No Apparent Distress, Comfortable and Conversant; Negative Pain, Fever, Chills or Sweats
HEENT: Normocephalic and Atraumatic
Respiratory: Clear to Auscultation and Non Labored Respirations; Negative Wheezes, Rales or Rhonchi
Cardiac: Regular Rhythm and S1/S2
GI: Soft, Nontender, Nondistended and Normal Bowel Sounds
Musculoskeletal: No Clubbing, No Cyanosis and No Edema
Skin: Warm and Dry
Neuro: Awake, Alert, AO x 3 and Other (Upper extremities with court operations clerk strength 5/5 and flexion 5/5, both symmetric bilaterally. R arm 5/5 extension, L arm 3/5 extension. Symmetric facial expressions, eyebrow raise, no tongue deviation.); Negative
Facial Droop
Psych: Calm
Data Reviewed
-
CT Scan: Image personally visualized and interpreted and Report Reviewed by me
MRI: Image personally visualized and interpreted and Report Reviewed by me
Labs: Labs Reviewed by me
--- NOTE | 2025-01-18 10:10 | CM ---
Patient seen at bedside.
PT rec outpatient therapy
tt hospitalist for script
IMM n/a
PLAN: Home, outpatient therapy
to transport
[2025-01-18 12:40] VITALS: BP 138/61; PULSE 60; O2SAT 98
[2025-01-18 15:34] VITALS: BP 115/84
--- NOTE | 2025-01-18 19:01 | W.DCSUMMARY ---
Discharge Summary
Discharge Data
Date of Admission: 01/14/25
Date of Discharge: 01/18/25
-
Pending Results: Yes
Additional Pending Results:
Myelopathy blood work
CSF studies
Culture data
Hospital Course
[facility] PCP MANGO BUTLER
[facility] NEUROLOGIST [facility] ANTONIO PERALTA
Discharging Physician : Dr. Perkins/Dr. Carias
Disposition : Home with outpatient PT/OT
Primary care physician : Mango Butler
Principal Discharge diagnosis :
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
Idiopathic intracranial hypertension
Transverse myelitis
Constipation
Chronic Discharge diagnosis :
History of migraines
Essential hypertension
Hyperlipidemia
Dave syndrome
Osteoporosis
Hospital Course :
Presented to hospital for 2 weeks of paresthesias and weakness. Neurology was consulted, imaging and procedure results below. She was treated with 3 days of IV steroids with some improvement in symptoms. For idiopathic intracranial hypertension
with lumbar puncture opening pressure of 33 mmHg, she was started on acetazolamide 250 mg twice daily with instructions to increase dose outpatient. Gabapentin was started for paresthesias. Her constipation was managed with standing bowel regimen.
Her other conditions remained stable. On day of discharge she was stable. She will follow-up with her PCP and her neurologist, and will review results of pending labs with them.
Important imaging findings :
Head CT 01/14/2025
FINDINGS:
The ventricles are normal in size, configuration, and position. Brain parenchyma is normal attenuation. There is no intra- or extra-axial mass, hemorrhage, or fluid collection. There is no midline shift nor mass effect. Visualized paranasal
sinuses are free of mucosal disease.
IMPRESSION:
No acute intracranial abnormality noted.
Cervical spine MRI 01/14/2025
FINDINGS: MRI of the cervical spine is performed, images obtained prior to and following intravenous administration of gadolinium-based contrast agent.
Preliminary report provided by [facility].
Within the cervical spinal cord at the C5-6 level, there is a focal area of patchy increased T2 and STIR signal, with somewhat poorly defined borders. This measures approximately 14 mm craniocaudal. On axial images, and appears to be predominantly
in the central spinal cord. There is no evidence for enhancement after contrast. This is a new finding compared to MRI of the cervical spine from May 01, 2016.
Given the clinical history, this would be considered suspicious for a focal area of transverse myelitis/demyelination, although without enhancement with contrast. There is no significant volume loss of the spinal cord, likely myelomalacia would be
less likely. Although there are some changes of degenerative disc disease, there does not appear to be high-grade stenosis, and therefore cord edema from cord compression would seem unlikely. Also, I have no reported history of recent injury to the
neck.
No other signal intensity abnormality in the cervical or visualized upper thoracic spinal cord.
At C4-5, mild to moderate degenerative disc disease. Mild broad-based disc/osteophyte complex compresses the anterior thecal sac with no evidence for cord compression or central canal stenosis. Left foramen appears mildly to moderately narrowed.
Right foramen appears mildly narrowed.
At C5-6, mild to moderate degenerative disc disease with anterior spondylosis. Broad-based disc/osteophyte complex abuts the anterior margin of the spinal cord without significant compression/deformation. Thinning of the anterior and posterior CSF
spaces, suggesting borderline mild overall central canal stenosis. The left foramen appears moderately to severely narrowed. The right foramen appears mildly to moderately narrowed.
At C6-7, mild to moderate degenerative disc disease. Broad-based disc/osteophyte complex, slightly greater toward the left. Compression of the anterior thecal sac with no evidence for cord compression or central canal stenosis. The left foramen
appears moderately to severely narrowed and the right foramen appears moderately narrowed.
No evidence for significant compression of the visualized upper thoracic spinal cord on sagittal images.
Prevertebral soft tissues appear within normal limits.
On postcontrast images, there is slight enhancement of the nuchal ligament posterior to the C7 spinous process, suggesting a degree of inflammation associated with focal thickening of the nuchal ligament.
IMPRESSION: Focal somewhat pointed defined signal intensity abnormality within the cervical spinal cord at the C5-6 level as described, with no evidence for abnormal enhancement. Given the clinical symptoms, this is suspicious for a focal area of
transverse myelitis or demyelination, although without evidence for active enhancement/inflammation.
Changes of degenerative disc disease. Borderline mild overall central canal stenosis at C5-6.
Thoracic spine MRI 01/14/2025
FINDINGS: MRI of the thoracic spine is performed, images obtained prior to and following intravenous administration of gadolinium-based contrast agent.
Preliminary report provided by [facility].
Normal morphology and signal intensity of the thoracic spinal cord. No evidence for abnormal enhancement.
Conus medullaris appears within normal limits, located at the mid L2 level.
No evidence for significant thoracic spinal cord compression. Mild to moderate changes of degenerative disc disease from T4-5 through T11-12. At T11-T12, small Schmorl's nodes within the endplates. Mild posterior disc bulge at T11-12, compressing
the anterior thecal sac with no cord compression or central canal stenosis.
No significant marrow signal intensity abnormality. The visualized descending thoracic aorta has normal caliber. No evidence for dominant nodule from the visualized thyroid gland. No significantly enlarged lymph nodes within the visualized
mediastinum.
Minimal bilateral posterior pleural effusions.
There is an irregular focus of intermediate T1 and T2-weighted signal intensity within the posterior aspect of the left lower lobe of the lung, as seen on image 18 of series 1401. Statistically this is most likely atelectasis.
IMPRESSION: Normal morphology and signal intensity of the thoracic spinal cord with no evidence for abnormal enhancement.
No evidence for spinal cord compression.
Focal intermediate T1 and T2-weighted signal within the posterior aspect of the left lower lobe. Statistically, this is most likely atelectasis.
Brain MRI 01/15/2025
FINDINGS: MRI of the brain is performed, images obtained prior to and following intravenous administration of gadolinium-based contrast agent.
There are foci of increased T2 and FLAIR signal with within the white matter of both hemispheres, more numerous on the left when compared to the right. There is left frontal periventricular involvement adjacent to the frontal horn and anterior mid
body of the left lateral ventricle. Scattered small foci within the deep and subcortical white matter of both hemispheres, with involvement of the frontal and parietal lobes, more numerous in the left hemisphere compared to the right.
With the periventricular predominance, findings are most suggestive of demyelinating process, such as multiple sclerosis. Differential consideration of Lyme disease. White matter hyperintensities are nonspecific, and vasculitis could also be
considered. Advanced small vessel ischemic change would be the next main differential consideration.
With contrast, no evidence for abnormal enhancement with no findings to suggest active demyelination.
The dural venous sinuses are patent.
There is no evidence for mass effect or midline shift.
There is no evidence for a focal area of infarction.
The ventricles and subarachnoid cisterns appear within normal limits. Craniocervical junction appears normal with no evidence for Chiari malformation. The pituitary gland appears grossly within normal limits.
Moderate patchy mucosal thickening of the ethmoid sinuses. Minimal mucosal thickening of the anterior sphenoid sinuses. Mild to moderate the callosal thickening of the maxillary sinuses.
The mastoid air cells appear clear.
IMPRESSION: Foci of increased T2 and FLAIR signal as described, including involvement in the left periventricular region. The distribution is suggestive of demyelination and multiple sclerosis. Differential considerations discussed above.
No evidence for abnormal enhancement with no findings to suggest active demyelination. No significant mass effect.
Paranasal sinus disease as described.
Abdomen x-ray 01/15/2025
FINDINGS:
Bowel: There is a nonobstructive bowel gas pattern. There is mild fecal material mostly in the right colon.
Peritoneum: No evidence of pneumoperitoneum noting limited evaluation on this single supine view.
Osseous structures: No abnormal calcifications or osseous abnormalities.
IMPRESSION:
Mild fecal material in the colon. No evidence of intestinal obstruction.
Procedure findings :
Lumbar puncture 01/17/2025
IMPRESSION:
1. Fluoroscopically guided lumbar puncture as described.
2. Opening pressure 33 cm of H2O. Closing pressure 22 cm of H2O.
Discharge Plan
-
Patient Disposition: Home (Routine Discharge)
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
Idiopathic intracranial hypertension
History of migraines
Constipation
Essential hypertension
Hyperlipidemia
Dave syndrome
Osteoporosis
Condition: Good
Diet: Low Cholesterol
Activity: As tolerated
Driving Restrictions: Not until seen by your Dr
Bathing Restrictions: OK to Shower
Blood Work: Repeat CBC, CMP with Primary Care in 1 week. Follow up results of bloodwork and CSF with Neurology.
Other Services: PT and OT
Activity Restrictions/Additional Instructions:
Follow up with your Primary Care and Neurologist. Some of the lab results from this hospitalization are still pending-- your neurologist can request these records, you can view them in your chart online, and/or call the hospitalist office
([phone]). You should also see an [facility] to monitor your eyes because of the intracranial hypertension. Continue Physical Therapy and Occupational Therapy outpatient.
Instructions: Multiple sclerosis in adults, Preventing falls in adults, Idiopathic Intracranial Hypertension (DC)
Referrals:
Mango Butler CRNP [Family Provider] - in less than 1 week (Call your Primary Care Provider to schedule follow up appointment within 1 week.)
Lucy Danielle MD [Active] - (Call the [facility] office to schedule an appointment to monitor your eyes with the new diagnosis of idiopathic intracranial hypertension.)
Marco Antonio Peralta MD [Non-Admitting Privileges] - in one to two weeks (Call the Neurology office to schedule appointment in 1-2 weeks.)
Additional Discharge Medication Instructions: NEW MEDICATIONS
For idiopathic intracranial hypertension:
ACETAZOLAMIDE (aka diamox)-- take 250mg twice per day. Over the next 3-5 days, increase your dose to 500mg twice per day as tolerated.
For neuropathy:
GABAPENTIN (aka neurontin)-- take 100mg at night. After 3 days, if needed you can increase your dose by 100mg as tolerated.
For constipation:
MIRALAX (aka polyethylene glycol)-- take 1 capful per day. If you have loose stools or multiple stools a day, you can decrease the dose to half a capful per day.
DOCUSATE (aka colace)-- take 1 capsule twice per day.
SENNA-- if miralax and docusate does not provide relief, you can add senna at night.
For medication questions or refills, please call your Primary Care or your Neurologist
Prescriptions:
New
docusate sodium 100 mg Capsule
100 mg PO BID Qty: 0 0RF
acetazolamide 250 mg Tablet
250 mg PO BID 5 Days Qty: 10 0RF
polyethylene glycol 3350 17 gram Powder In Packet
17 g PO DAILY Qty: 0 0RF
pantoprazole 20 mg Tablet,Delayed Release (Dr/Ec)
20 mg PO DAILY Qty: 30 0RF
gabapentin [Neurontin] 100 mg capsule
100 mg PO HS Qty: 60 0RF
acetazolamide 250 mg tablet
500 mg PO BID Qty: 120 0RF
Continued
[id number]-fnfsydjjudfma-ygmb 1 TAB tablet
1 tab PO [id number] PRN (Reason: migraines)
calcium carbonate 600 MG tablet
1,200 mg PO DAILY
atorvastatin 40 mg Tablet
40 mg PO DAILY
cetirizine 10 mg Tablet
10 mg PO DAILY
cyanocobalamin (vitamin B-12) 1,000 mcg Tablet
1,000 mcg PO DAILY
lisinopril 5 mg Tablet
5 mg PO DAILY
cholecalciferol (vitamin D3) [Vitamin D3] 125 mcg (5,000 unit) Tablet
125 mcg PO DAILY
omega [id number]-[id number]-fish oil [Fish Oil] 1,200 (144-216) mg Capsule
1 cap PO DAILY
Discharge Orders:
Discharge Patient (As Directed); Ordered 01/18/25
Ordered By: Kasia Perkins
Discharge Date and Time
Discharge Date/Time: 01/18/25 15:43
Print Language: [place]
[2025-01-19 22:56] LABS: Angiotensin-1- Converting, CSF 0.6 U/L (0.0-2.5)
[2025-01-20 00:02] LABS: Myelin Basic Protein, CSF 9.96 ng/mL (0.00-5.50)
[2025-01-20 04:04] LABS: Lyme Disease DNA by PCR Not Detected; Lyme Source CSF
== END 2025-01-18 15:43 | disposition home or self-care (01) | DRG 99 ==
LOC: 3 WEST ACU 20:59
PROVIDERS: Internal Medicine; Nurse Practitioner Family; Physician Assistant; Radiology Vascular & Interventional Radiology; Student in an Organized Health Care Education/Training Program; ADMITTING PHYSICIAN Internal Medicine; ATTENDING PHYSICIAN Internal Medicine; CONSULT PHYSICIAN Psychiatry & Neurology Neurology; EMERGENCY PHYSICIAN Emergency Medicine; FAMILY PHYSICIAN Nurse Practitioner
PROC: B01B1ZZ Fluoroscopy of Spinal Cord using Low Osmolar Contrast (ICD-10-PCS; 2025-01-17)
PROC: 009U3ZX Drainage of Spinal Canal, Percutaneous Approach, Diagnostic (ICD-10-PCS; 2025-01-17)
DX: G37.3 Acute transverse myelitis in demyelinating disease of central nervous system (principal); G37.9 Demyelinating disease of central nervous system, unspecified; G93.2 Benign intracranial hypertension; R20.0 Anesthesia of skin; I10 Essential (primary) hypertension; E78.5 Hyperlipidemia, unspecified; G43.909 Migraine, unspecified, not intractable, without status migrainosus; M48.02 Spinal stenosis, cervical region; M81.0 Age-related osteoporosis without current pathological fracture; E53.8 Deficiency of other specified B group vitamins; K59.00 Constipation, unspecified; G89.29 Other chronic pain; D72.829 Elevated white blood cell count, unspecified; Z87.442 Personal history of urinary calculi; Z15.09 Genetic susceptibility to other malignant neoplasm; Z82.3 Family history of stroke; Z82.49 Family history of ischemic heart disease and other diseases of the circulatory system; Z84.1 Family history of disorders of kidney and ureter; Z90.710 Acquired absence of both cervix and uterus; Z90.79 Acquired absence of other genital organ(s); Z90.722 Acquired absence of ovaries, bilateral; Z85.89 Personal history of malignant neoplasm of other organs and systems
CPT/HCPCS: 62328; 70450; 70553; 72156; 72157; 74018; 80048; 80053; 81003; 81015; 82040; 82042; 82164; 82248; 82550; 82607; 82746; 82784; 82945; 83735; 83873; 83916; 84155; 84165; 84443; 85025; 85027; 85652; 86038; 86140; 86618; 86780; 87015; 87070; 87205; 87389; 87476; 87483; 88108; 89051; 93005; 97112; 97116; 97163; 97167; 99285; A9575

== ENCOUNTER → 2025-01-20 15:37 | Outpatient (REF) | payer OTHER, SELFPAY | LOC: WDC 15:37 | PROVIDERS: ATTENDING PHYSICIAN Nurse Practitioner | DX: Z12.31 Encounter for screening mammogram for malignant neoplasm of breast (principal) | CPT/HCPCS: 77063; 77067 ==

== ENCOUNTER 2025-02-10 06:24 | Day surgery (SDC) | payer OTHER, SELFPAY | END 2025-02-10 13:00 | disposition home or self-care (01) | LOC: GI 06:24 | PROVIDERS: ATTENDING PHYSICIAN Internal Medicine Gastroenterology | DX: Z12.11 Encounter for screening for malignant neoplasm of colon (principal); C18.9 Malignant neoplasm of colon, unspecified; K52.9 Noninfective gastroenteritis and colitis, unspecified; K63.3 Ulcer of intestine; K64.0 First degree hemorrhoids; K29.50 Unspecified chronic gastritis without bleeding; K22.81 Esophageal polyp; K22.89 Other specified disease of esophagus; K31.89 Other diseases of stomach and duodenum; Z15.09 Genetic susceptibility to other malignant neoplasm; Z86.0100 Personal history of colon polyps, unspecified; Z98.890 Other specified postprocedural states | CPT/HCPCS: 45380; 43239; 88305; 88342 ==

== ENCOUNTER 2025-02-16 14:47 | Outpatient (RCR) | payer OTHER, SELFPAY | END 2025-02-16 23:59 | disposition home or self-care (01) | LOC: RPT 14:47 | PROVIDERS: ATTENDING PHYSICIAN Internal Medicine | DX: R26.89 Other abnormalities of gait and mobility (principal); Z73.6 Limitation of activities due to disability | CPT/HCPCS: 97110; 97112; 97163; 97166; 97530; 97535 ==

== ENCOUNTER 2025-02-24 14:19 | Outpatient (RCR) | payer OTHER, SELFPAY | END 2025-02-24 23:59 | disposition home or self-care (01) | LOC: RPT 14:19 | PROVIDERS: ATTENDING PHYSICIAN Internal Medicine | DX: R26.89 Other abnormalities of gait and mobility (principal); Z73.6 Limitation of activities due to disability; M79.642 Pain in left hand; M62.81 Muscle weakness (generalized); R20.0 Anesthesia of skin; R20.2 Paresthesia of skin | CPT/HCPCS: 97110; 97112; 97530; 97535 ==

== ENCOUNTER → 2025-03-17 09:54 | Outpatient (REF) | payer OTHER, SELFPAY | LOC: PAVMRI 09:54 | PROVIDERS: ATTENDING PHYSICIAN Internal Medicine Gastroenterology; FAMILY PHYSICIAN Nurse Practitioner | DX: R19.7 Diarrhea, unspecified (principal) | CPT/HCPCS: 72197; 74183; A9575 ==